=== PATIENT | male | born 1950 | race Caucasian/White ===

== ENCOUNTER 2020-01-08 12:40 | Outpatient (CLI) | payer MEDICARE, SELFPAY ==
[2020-01-08 13:45] LABS: Basophils Percent Auto 0.6 % (0.2-1.2); Eosinophils Absolute Auto 0.2 K/mm3 (0-0.3); Eosinophils Percent Auto 3.8 % (0-4.4); Hematocrit 44.3 % (42.0-52.0); Hemoglobin 14.8 g/dL (14.0-18.0); Immature Granulocyte Absolute 0.04 K/mm3 (0.00-0.031); Immature Granulocyte Percent A 0.6 % (0-0.5); Lymphocytes Absolute Auto 2.17 K/mm3 (0.9-3.2); Lymphocytes Percent Auto 34.4 % (18.3-44.2); Mean Corpuscular HGB Conc 33.4 g/dl (32-36); Mean Corpuscular Volume 89.9 fl (80-100); Mean Platelet Volume 10.6 fl (7.4-10.4); Monocytes Absolute Auto 0.6 K/mm3 (0.1-0.6); Monocytes Percent Auto 9.4 % (2.6-8.5); Neutrophils Absolute Auto 3.2 K/mm3 (1.3-6.7); Neutrophils Percent Auto 51.2 % (45.5-73.1); Platelet Count Result 151 k/mm3 (150-375); Red Blood Count 4.93 M/mm3 (4.6-6.20); Red Cell Distribution Width 13.2 % (11.5-14.5); White Blood Count 6.3 K/mm3 (4.5-10.0)
[2020-01-08 14:00] LABS: Alanine Aminotransferase 22 U/L (4-50); Alkaline Phosphatase 56 U/L (38-126); Aspartate Amino Transferase 31 U/L (17-59); Bilirubin,Total 0.5 mg/dL (0.2-1.3); Blood Urea Nitrogen 16 mg/dL (9-20); Calcium 9.5 mg/dL (8.4-10.2); Carbon Dioxide 26 mmol/L (22-30); Chloride 102 mmol/L (98-107); Estimated Glomerular Filt Rate > 60; Glucose 82 mg/dL (75-110); Potassium 4.5 mmol/L (3.4-5.0); Sodium 141 mmol/L (137-145)
[2020-01-08 14:30] LABS: Thyroid Stimulating Hormone 0.784 uIU/mL (0.465-4.680)
== END 2020-01-08 12:41 | disposition home or self-care (01) ==
PROVIDERS: PCP Family Medicine; Visit Provider Physician Assistant
DX: E03.9 Hypothyroidism, unspecified (principal); R42 Dizziness and giddiness
CPT/HCPCS: 36415; 80053; 84443; 85025

== ENCOUNTER → 2020-01-22 11:02 | Outpatient (REF) | payer MEDICARE, SELFPAY | LOC: ANHLAB 11:02 | PROVIDERS: PCP Family Medicine; Visit Provider Nurse Practitioner Family | DX: D49.2 Neoplasm of unspecified behavior of bone, soft tissue, and skin (principal) | CPT/HCPCS: 88305 ==

== ENCOUNTER 2020-01-28 13:51 | Emergency (ER) | payer MEDICARE, SELFPAY ==
--- NOTE | ~2020-01-28 | XR_ITS ---
EXAMINATION: XR ankle RT min 3V, XR foot RT min 3V EXAM DATE: 01/28/2020 14:32 INDICATION: Initial encounter following injury, with pain of the right foot, ankle. TECHNIQUE: Right foot dorsoplantar, lateral and oblique projections obtained and reviewed. Right ank le frontal, lateral and oblique projections obtained and reviewed. There is no prior study for fabien talavera. FINDINGS: Right metatarsal bones unremarkable. The right ankle mortise appears intact. There is a n avulsion fracture of the dorsal anterior aspect of the talus identified on the lateral projections, most likely an acute closed posttraumatic finding; check for point tenderness. No other suspicious f indings. IMPRESSION: Right talus anterior superior avulsion fracture, most likely acute. Clinical correlation . Reviewed, dictated and finalized at location B. IMPRESSION: Right talus anterior superior avulsion fracture, most likely acute . Clinical correlation.
[2020-01-28 14:03] VITALS: BP 140/109; PULSE 99; RESP 16; TEMP 36.1; O2SAT 98
--- NOTE | 2020-01-28 15:45 | ED.LOWEXIN ---
HPI - Extremity Injury (Lower) General Chief Complaint: Extremity Injury, Lower Stated Complaint: Right foot injury Time Seen by Provider: 01/28/20 13:58 Source: patient Mode of arrival: ambulatory Limitations: no limitations History of Present Illness HPI Narrative: Patient is a 69-year-old male who presents to emergency department for evaluation of right foot pain after miss stepping today and has since developed swelling and tenderness along the anterior lateral aspect of the right midfoot pain is worse with weightbearing and activity. Patient denies radicular symptoms or paresthesias and presents in no distress and has not taken anything for his symptoms Related Data Home Medications Medication Instructions Recorded Confirmed divalproex 250 mg tablet,extended 750 mg PO DAILY tablet 12/19/19 release 24 hr Allergies Allergy/AdvReac Type Severity Reaction Status Date / Time milk Allergy Unknown Dry Mouth Verified 01/28/20 14:07 Penicillins Allergy Unknown Unknown Verified 01/28/20 14:07 spinach Allergy Unknown Unknown Verified 01/28/20 14:07 Pork Allergy Unknown Stopped Uncoded 01/28/20 14:07 Breathing [place] Allergy Unknown Stopped Uncoded 01/28/20 14:07 Breathing Review of Systems Review of Systems: Narrative: CONSTITUTIONAL: Denies fever, chills, or sweats. SKIN: Positive for bruising and swelling MUSCULOSKELETAL: Denies back pain, joint pain, or myalgia. NEUROLOGIC: Denies numbness, or weakness. PMFSH Past Medical History Medical History CRUZITO (generalized anxiety disorder) Family History Family History (Updated 01/25/18 @ 21:44 by DOCTOR UNKNOWN) Sibling Family history of malignant neoplasm of stomach Father Family history of coronary artery disease Family history of cardiovascular disease Mother Family history of osteoporosis Family history of development disorder Social History Social History Smoking status: Never smoker Second hand tobacco smoke exposure: No Alcohol intake: never Substance use: never Substance use type: does not use Gender identity (if verbalized by the patient): Male Exam Narrative: Exam Narrative: GENERAL: Well-appearing, well-nourished, and in no acute distress. HEAD: Normocephalic, atraumatic. EYES: PERRLA and EOMI. ENT: Nares clear, no rhinorrhea or epistaxis. Mucous membranes moist. EXTREMITIES: Swelling and tenderness along the lateral midfoot SKIN: Warm, dry, no rash. NEURO: No focal deficits. Alert and oriented x3. Neurovascularly intact. Capillary refill less than 2 seconds PSYCH: Normal mood and affect. Course Course Emergency Course: Patient in the room aware of case findings treatment plan and diagnosis agreeing to follow-up as directed or to return if symptoms worsen or concerns Consultations Consultation #1: Patient to be placed in posterior splint and follow in clinic Date: 01/28/20 Vital Signs Vital signs: Vital Signs Temperature 97.0 F L 01/28/20 14:03 Pulse Rate 99 01/28/20 14:03 Respiratory Rate 16 01/28/20 14:03 Blood Pressure 140/109 H 01/28/20 14:03 Pulse Oximetry 98 01/28/20 14:03 Temperature 97.0 F L 01/28/20 14:03 Pulse Rate 99 01/28/20 14:03 Respiratory Rate 16 01/28/20 14:03 Blood Pressure 140/109 H 01/28/20 14:03 Pulse Oximetry 98 01/28/20 14:03 MDM - Extremity Injury (Lower) MDM Narrative Medical decision making narrative: Patients injury or pain is consistent with musculoskeletal etiology. No signs of neurological or vascular compromise on exam. Compartments and tisues are soft without signs of compartment syndrome. Pain is felt appropriate for further evaluation on an outpatient basis. Discharge Plan Discharge Clinical Impression: Ankle fracture, right Patient Disposition: Home, Self-Care Condition: Stable Instructions: Antibiotic Form, Ank
[2020-01-28 16:28] VITALS: BP 160/97; PULSE 81; RESP 15; O2SAT 95
== END 2020-01-28 16:30 | disposition home or self-care (01) ==
PROVIDERS: Emergency Provider Emergency Medicine; PCP Family Medicine
DX: S92.191A Other fracture of right talus, initial encounter for closed fracture (principal); F41.9 Anxiety disorder, unspecified; W18.40XA Slipping, tripping and stumbling without falling, unspecified, initial encounter
CPT/HCPCS: 29515; 73610; 73630; 99284

== ENCOUNTER → 2020-03-31 10:10 | Outpatient (REF) | payer MEDICARE, SELFPAY | LOC: ANHLAB 10:10 | PROVIDERS: PCP Family Medicine; Visit Provider Nurse Practitioner Family | DX: C44.41 Basal cell carcinoma of skin of scalp and neck (principal) | CPT/HCPCS: 88305; 88331 ==

== ENCOUNTER 2021-08-10 01:19 | Day surgery (SDC) | payer MEDICARE, SELFPAY ==
[2021-07-28 14:14] VITALS: BMI 26.4
--- NOTE | 2021-08-09 17:21 | PM.HPGS ---
History of Present Illness History of Present Illness Consent: Risks, benefits, and alternatives have been discussed and questions answered. Patient agrees to proceed with procedure. Chief complaint: hx of colon polyps Z86.010 Narrative: William Florez is a 71 year old male with history of colon polyps. He is here for colon cancer screening Review of Systems Review of Systems: All systems reviewed & are unremarkable except as noted in HPI and below PMFSH Past Medical History Medical History CRUZITO (generalized anxiety disorder) Stroke Surgical History Surgical History History of heart surgery History of hernia repair Family History Family History Sibling Family history of malignant neoplasm of stomach Father Family history of coronary artery disease Family history of cardiovascular disease Mother Family history of osteoporosis Family history of development disorder Social History Social History Smoking status: Never smoker Second hand tobacco smoke exposure: No Alcohol intake: never Substance use: never Substance use type: does not use Additional living arrangements comments: Gender identity (if verbalized by the patient): Male Sexual Orientation (if Verbalized by the Patient): Straight or Heterosexual Meds Home Medications and Allergies Home Medications Medication Instructions Recorded Confirmed Type aspirin 81 mg tablet,delayed 81 mg PO DAILY 02/03/20 08/10/21 History release omeprazole magnesium [Prilosec OTC] 40 mg PO DAILY 01/25/21 08/10/21 History levothyroxine 125 mcg tablet See Rx Instructions .ROUTE 03/18/21 08/10/21 Rx .COMPLEX #90 tablet buspirone 5 mg tablet 5 mg PO BID #60 tablet 07/01/21 08/10/21 Rx simvastatin 40 mg tablet See Rx Instructions .ROUTE 07/26/21 08/10/21 Rx .COMPLEX #90 tablet divalproex [Depakote ER] See Rx Instructions .ROUTE .COMPLEX 07/28/21 08/10/21 History sertraline 50 mg tablet See Rx Instructions .ROUTE 08/05/21 08/10/21 Rx .COMPLEX #90 tablet Allergies Allergy/AdvReac Type Severity Reaction Status Date / Time milk Allergy Unknown Dry Mouth Verified 08/10/21 06:48 Penicillins Allergy Unknown Unknown Verified 08/10/21 06:48 spinach Allergy Unknown Unknown Verified 08/10/21 06:48 Pork Allergy Unknown Anaphylaxis Uncoded 08/10/21 06:48 [place] Allergy Unknown Anaphylaxis Uncoded 08/10/21 06:48 Exam Const: General: alert Orientation/consciousness: patient oriented x3 Resp: Auscultation: clear to auscultation bilaterally Cardio: Rhythm: regular rhythm GI: GI Palp: Yes Soft to palpation and No Tenderness to palpation present (GI) Neuro: General: patient oriented x3 Assessment and Plan Assessment and plan (1) Colon cancer screening: Code(s): Z12.11 - Encounter for screening for malignant neoplasm of colon Status: Acute Assessment and Plan: Colonoscopy with possible biopsy or polypectomy or cautery or injection of substances.
[2021-08-10 06:50] VITALS: BP 144/99; PULSE 79; RESP 18; TEMP 36.3; O2SAT 100
[2021-08-10] MEDS: LACTATED RINGERS 1,000 ML 150 ML IV CONT (06:55)
--- NOTE | 2021-08-10 06:55 | WPDANESEPPF ---
Anes - Initial Pre Proc Eval Procedure: Operation Date: 08/10/21 08:00 Proposed Procedures p Screening Colonoscopy - Darío Lomeli MD Date/Time: 08/10/21 06:55 Surgeon: Darío Lomeil MD Pre Op Diagnosis: hx of colon polyps Z86.010 Patient Data Age: 71 Gender: M Height: 1.73 m Weight: 80.3 kg Last Vital Signs Temp 36.3 C L 08/10/21 06:50 Pulse 79 08/10/21 06:50 Resp 18 08/10/21 06:50 BP 144/99 H 08/10/21 06:50 Pulse Ox 100 08/10/21 06:50 Allergies Allergy/AdvReac Type Severity Reaction Status Date / Time milk Allergy Unknown Dry Mouth Verified 08/10/21 06:48 Penicillins Allergy Unknown Unknown Verified 08/10/21 06:48 spinach Allergy Unknown Unknown Verified 08/10/21 06:48 Pork Allergy Unknown Anaphylaxis Uncoded 08/10/21 06:48 [place] Allergy Unknown Anaphylaxis Uncoded 08/10/21 06:48 Home Medications Medication Instructions Recorded Confirmed Type aspirin 81 mg tablet,delayed 81 mg PO DAILY 02/03/20 08/10/21 History release omeprazole magnesium [Prilosec OTC] 40 mg PO DAILY 01/25/21 08/10/21 History levothyroxine 125 mcg tablet See Rx Instructions .ROUTE 03/18/21 08/10/21 Rx .COMPLEX #90 tablet buspirone 5 mg tablet 5 mg PO BID #60 tablet 07/01/21 08/10/21 Rx simvastatin 40 mg tablet See Rx Instructions .ROUTE 07/26/21 08/10/21 Rx .COMPLEX #90 tablet divalproex [Depakote ER] See Rx Instructions .ROUTE .COMPLEX 07/28/21 08/10/21 History sertraline 50 mg tablet See Rx Instructions .ROUTE 08/05/21 08/10/21 Rx .COMPLEX #90 tablet Patient hx anesthesia problems: none Family hx anesthesia problems: none PMFSH Past Medical History Medical History CRUZITO (generalized anxiety disorder) Stroke Surgical History Surgical History History of heart surgery History of hernia repair Family History Family History Sibling Family history of malignant neoplasm of stomach Father Family history of coronary artery disease Family history of cardiovascular disease Mother Family history of osteoporosis Family history of development disorder Social History Social History Smoking status: Never smoker Second hand tobacco smoke exposure: No Alcohol intake: never Substance use: never Substance use type: does not use Additional living arrangements comments: Gender identity (if verbalized by the patient): Male Sexual Orientation (if Verbalized by the Patient): Straight or Heterosexual Anes - Eval Final PreProcedure Day of Procedure 08/10/21 06:55 Patient weight: normal Heart: regular rate and rhythm Lungs: clear to auscultation and normal air movement Airway: Mallampati scale class II Neurological: alert and oriented Last oral intake: >/= 8 hours ASA classification: III Emergent: no Anesthetic plan: proceed Anesthesia type and monitoring: general GIVS Informed Consent: The patient's anesthetic plan and its attendant risks and benefits were discussed with the patient/family/POA. Questions were solicited and answers provided to the satisfaction of the patient/family/POA.
--- NOTE | 2021-08-10 07:21 | PM.HPGS ---
History of Present Illness History of Present Illness Consent: Risks, benefits, and alternatives have been discussed and questions answered. Patient agrees to proceed with procedure. Chief complaint: hx of colon polyps Z86.010 Narrative: William Florez is a 71 year old male here for colon cancer screening. He has had polyps removed about 4 years ago Review of Systems Review of Systems: All systems reviewed & are unremarkable except as noted in HPI and below PMFSH Past Medical History Medical History CRUZITO (generalized anxiety disorder) Stroke Surgical History Surgical History History of heart surgery History of hernia repair Family History Family History Sibling Family history of malignant neoplasm of stomach Father Family history of coronary artery disease Family history of cardiovascular disease Mother Family history of osteoporosis Family history of development disorder Social History Social History Smoking status: Never smoker Second hand tobacco smoke exposure: No Alcohol intake: never Substance use: never Substance use type: does not use Additional living arrangements comments: Gender identity (if verbalized by the patient): Male Sexual Orientation (if Verbalized by the Patient): Straight or Heterosexual Meds Home Medications and Allergies Home Medications Medication Instructions Recorded Confirmed Type aspirin 81 mg tablet,delayed 81 mg PO DAILY 02/03/20 08/10/21 History release omeprazole magnesium [Prilosec OTC] 40 mg PO DAILY 01/25/21 08/10/21 History levothyroxine 125 mcg tablet See Rx Instructions .ROUTE 03/18/21 08/10/21 Rx .COMPLEX #90 tablet buspirone 5 mg tablet 5 mg PO BID #60 tablet 07/01/21 08/10/21 Rx simvastatin 40 mg tablet See Rx Instructions .ROUTE 07/26/21 08/10/21 Rx .COMPLEX #90 tablet divalproex [Depakote ER] See Rx Instructions .ROUTE .COMPLEX 07/28/21 08/10/21 History sertraline 50 mg tablet See Rx Instructions .ROUTE 08/05/21 08/10/21 Rx .COMPLEX #90 tablet Allergies Allergy/AdvReac Type Severity Reaction Status Date / Time milk Allergy Unknown Dry Mouth Verified 08/10/21 06:48 Penicillins Allergy Unknown Unknown Verified 08/10/21 06:48 spinach Allergy Unknown Unknown Verified 08/10/21 06:48 Pork Allergy Unknown Anaphylaxis Uncoded 08/10/21 06:48 [place] Allergy Unknown Anaphylaxis Uncoded 08/10/21 06:48 Vital Signs Vital Signs - 24 hr 08/10/21 06:50 Temperature 36.3 C L Pulse Rate 79 Respiratory Rate 18 Blood Pressure 144/99 H Pulse Oximetry 100 Exam Resp: Auscultation: clear to auscultation bilaterally Cardio: Rate: regular rate Rhythm: regular rhythm GI: GI Palp: Yes Soft to palpation and No Tenderness to palpation present (GI) Assessment and Plan Assessment and plan (1) Colon cancer screening: Code(s): Z12.11 - Encounter for screening for malignant neoplasm of colon Status: Acute Assessment and Plan: Colonoscopy with possible biopsy or polypectomy or cautery or injection of substances.
[2021-08-10 08:12] VITALS: BP 105/57; PULSE 60; RESP 16; O2SAT 97
[2021-08-10 08:22] VITALS: BP 104/61; PULSE 52; RESP 16; O2SAT 97
[2021-08-10 08:32] VITALS: BP 123/75; PULSE 56; RESP 18; O2SAT 97
== END 2021-08-10 08:43 | disposition home or self-care (01) ==
PROVIDERS: PCP Family Medicine; Visit Provider Internal Medicine Gastroenterology
PROC: 0DJD8ZZ Inspection of Lower Intestinal Tract, Via Natural or Artificial Opening Endoscopic (ICD-10-PCS; CPT 45378; principal; 2021-08-10 08:00)
DX: Z12.11 Encounter for screening for malignant neoplasm of colon (principal); K57.30 Diverticulosis of large intestine without perforation or abscess without bleeding; Z86.010 Personal history of colon polyps; F41.1 Generalized anxiety disorder; Z86.73 Personal history of transient ischemic attack (TIA), and cerebral infarction without residual deficits; Z79.82 Long term (current) use of aspirin
CPT/HCPCS: G0105; J2704; J7120

== ENCOUNTER 2022-08-21 14:27 | Outpatient (CLI) | payer MEDICARE, SELFPAY ==
[2022-08-21 15:15] LABS: Valproic Acid 50.4 ug/mL (50-120)
== END 2022-08-21 14:28 | disposition home or self-care (01) ==
PROVIDERS: Anesthesiology; PCP Family Medicine; Visit Provider Surgery
DX: G40.909 Epilepsy, unspecified, not intractable, without status epilepticus (principal); Z01.818 Encounter for other preprocedural examination
CPT/HCPCS: 36415; 80164

== ENCOUNTER 2022-08-28 02:03 | Day surgery (SDC) | payer MEDICARE, SELFPAY ==
[2022-08-18 13:31] VITALS: BMI 28.8
--- NOTE | 2022-08-18 13:59 | PC.NURSE ---
Report to the Outpatient Waiting Room, entrance under the green pavilion located off [facility], at time ___11:00AM____ on date _08/28/22 . OR Time: __1:00PM . Time changes happen often and if your time is changed the preop area will call you the afternoon before. - You and your visitor will be asked to self-screen and do not enter if you have any COVID symptoms. - Only one visitor and NO children visitors are allowed at this time. - The patient visitor is requested to leave or wait in car when not with patient due to restrictions. - A mask is required within the hospital. Patients may have clear liquids (water, carbonated beverages, clear teas, apple juice) until 3 hours prior to surgery with a maximum of 20 ounces. - No food from midnight until time of surgery Take the following medications with a SIP of water the morning of surgery: ___BUSPIRONE, DIVALPROEX, LEVOTHYROXINE, SERTRALINE Medications to discontinue per physician ____HOLD ALL VITAMINS/SUPPLEMENTS 3 DAYS PRE-OP Date to take last dose____08/25/22 Please no make-up, nail al[place]ian, hairspray, perfume, deodorant, or body powder the day of surgery. No jewelry (including any body piercings) or valuables the day of surgery, leave them at home. Please take a shower or bath the night before, or the morning of, surgery with an antibacterial soap. Wear comfortable, loose fitting clothing. Children are encouraged to wear pajamas. - Jewelry must be removed prior to entering the operating room. Rings and piercings that are not removed may be cut off. - The hospital will not accept responsibility for valuables. - Please leave all valuables, including medications, at home the day of surgery. If you are going home after surgery, a licensed rolloff truck driver must drive you home. - NO public transportation without another adult. - We recommend that an adult stay with you for 24 hours following discharge. - We also recommend that you do not drive, make important decision, drink alcoholic beverages, or take any drugs that were not prescribed by your health care provider for at least 24 hours after your discharge time. Follow any additional instructions given to you from your surgeon. If you or anyone in your household have experienced Covid symptoms in the past week, please notify your surgeon or the nurse liaison at the phone number below for possible testing. Telephone instructions given to __PATIENT and asked if any additional questions and then verbalized understanding. Patient advised to call surgeon office or pre surgery nurse liaison [phone] if any additional questions.
[2022-08-28 11:11] VITALS: BP 146/87; PULSE 72; RESP 20; TEMP 36.8; O2SAT 99
[2022-08-28] MEDS: ACETAMINOPHEN 500 MG TABLET 1000 MG PO (11:22)
--- NOTE | 2022-08-28 12:15 | WPDANESEPPF ---
Anes - Initial Pre Proc Eval Procedure: Operation Date: 08/28/22 13:00 Proposed Procedures p Rectal Examination under Anesthesia, Excision External Hemorrhoid - Rad Cruz DO Date/Time: 08/28/22 12:15 Surgeon: Rad Cruz DO Pre Op Diagnosis: Bleeding External Hemorrhoids Patient Data Age: 72 Gender: M Height: 1.73 m Weight: 86 kg Allergies Allergy/AdvReac Type Severity Reaction Status Date / Time milk Allergy Severe BREATHING Verified 08/28/22 11:13 DIFFICULTY/POSITIVE ON ALLERGY TESTING Penicillins Allergy Unknown Unknown Verified 08/28/22 11:13 spinach AdvReac Unknown AVOIDS R/T Verified 08/28/22 11:13 KIDNEY STONES [place] AdvReac Unknown PER Uncoded 08/28/22 11:13 ALLERGY SKIN TESTING [place] AdvReac Unknown PER Uncoded 08/28/22 11:13 ALLERGY SKIN TESTING Home Medications Medication Instructions Recorded Confirmed Type aspirin 81 mg tablet,delayed 81 mg PO DAILY 02/03/20 08/28/22 History release (Adult Aspirin Regimen) buspirone 5 mg tablet 5 mg PO BID #180 tabs 05/19/22 08/28/22 Rx divalproex 250 mg tablet,extended See Rx Instructions .Route 06/02/22 08/28/22 Rx release 24 hr (Depakote ER) .COMPLEX #270 tabs hydrocortisone 2.5 % topical cream 1 applic RECTAL DAILY PRN Pain 08/08/22 08/28/22 History with perineal applicator glucosamine sulf dipot 1 cap PO DAILY 08/18/22 08/28/22 History chlr,msm,chond 550 mg-C 30 mg-mateus 1 mg capsule (Glucosamine Chondroitin) multivitamin 1 tablet PO DAILY 08/18/22 08/28/22 History omega 6-yrq-cfz-fish oil 1,000 mg 1 cap PO DAILY 08/18/22 08/28/22 History (120 mg-180 mg) capsule (Fish Oil) omeprazole 20 mg tablet,delayed 20 mg PO DAILY 08/18/22 08/28/22 History release sertraline 50 mg tablet (Zoloft) 50 mg PO QAM 08/18/22 08/28/22 History simvastatin 40 mg tablet 40 mg PO DAILY 08/18/22 08/28/22 History levothyroxine 125 mcg tablet 125 mcg PO QAM #90 tabs 08/21/22 08/28/22 Rx Patient hx anesthesia problems: none Family hx anesthesia problems: none Results Review: All pre-operative results and documents have been reviewed as part of the pre-operative evaluation. [facility] Past Medical History Medical History Epilepsy, unspecified, not intractable, without status epilepticus CRUZITO (generalized anxiety disorder) Gastro-esophageal reflux disease without esophagitis Hemorrhoids Hypothyroidism Mixed hyperlipidemia Stroke Surgical History Surgical History History of heart surgery History of hernia repair right inguinal hernia repair Family History Family History Sibling , in his early 50's Family history of malignant neoplasm of stomach Father , in his early 50's Family history of coronary artery disease Family history of cardiovascular disease Mother Family history of osteoporosis Family history of development disorder Social History Social History Social History: Smoking status: Never smoker Second hand tobacco smoke exposure: No Alcohol intake: never Substance use: never Substance use type: does not use Living arrangements: with family Additional living arrangements comments: Gender identity (if verbalized by the patient): Male Sexual Orientation (if Verbalized by the Patient): Straight or Heterosexual Spiritual care concerns: No Anes - Eval Final PreProcedure Day of Procedure 08/28/22 12:15 Patient weight: overweight Heart: regular rate and rhythm Lungs: clear to auscultation Airway: Mallampati scale class III Neurological: alert and oriented Last oral intake: >/= 8 hours ASA classification: III Emergent: no Anesthetic plan: proceed Anesthesia type an
--- NOTE | 2022-08-28 12:51 | WPDHPUPDATE1 ---
History and Physical Update Update Date/Time: 08/28/22 12:51 History and Physical has been reviewed, including an updated exam of the patient. There are NO changes in the patient's condition. Risks, benefits, and alternatives have been discussed and questions answered. Patient agrees to proceed with procedure.
[2022-08-28] MEDS: LACTATED RINGERS 1,000 ML 30 ML IV CONT (12:57)
[2022-08-28] MEDS: KETOROLAC 15 MG/ML VIAL (*BKC) IV PUSH (12:58)
[2022-08-28] MEDS: ceFAZolin 2 GM/D5W 50 ML 2 GM/50 ML BAG IVPB (13:02)
[2022-08-28 13:47] VITALS: BP 128/70; PULSE 71; RESP 19; O2SAT 98
--- NOTE | 2022-08-28 13:51 | W.PM.PROC2 ---
Procedure Note - Detailed Date of Procedure 08/28/22 Pre-op Diagnosis Bleeding External Hemorrhoids Post-op Diagnosis Other (Internal and external hemorrhoid, anal skin tag) Procedure Performed Rectal exam under anesthesia with internal and external hemorrhoidectomy x1 column, excision of anal skin tag Surgeon Rad Cruz, DO Anesthesia MAC and Local (2% lidocaine with epinephrine) Indications This is a 72-year-old man who presents with bright red blood per rectum for the past several months. He states that he has not typically noticed any blood dripping into the toilet, but does notice blood when wiping and has some discomfort and irritation. He also has to wear a pad due to some bleeding that he will noticed throughout the day. On exam he was found to have a friable inflamed external hemorrhoid but there did not appear to be any evidence of thrombosis. Discussions were made with the patient about treatment options and decision was made to proceed with rectal exam under anesthesia with excision of external hemorrhoid. Findings Rectal exam under anesthesia was performed. Upon inspecting the anal rectal canal carefully with an anoscope, the area of concern in the anterior midline appeared to be a prolapsing internal hemorrhoid that was friable and inflamed. This was associated with an external hemorrhoid as well. In internal and external hemorrhoidectomy was performed in the anterior midline region. The patient was also noted to have a right posterior anal skin tag. This was also excised and sent to the lab for pathology. Description of Procedure Procedure as well as risks, benefits, and alternatives were discussed with the patient. Written consent was obtained and placed in chart prior to procedure. Patient was brought back to surgical suite. He was placed supine on operating table. Time-out was done to confirm patient and procedure. IV sedation was then administered by the anesthesia department. He was then placed in dorsal lithotomy position and his perirectal region was prepped and draped in sterile fashion using Betadine prep. Digital rectal exam was initially performed. A Ike-Allred anoscope was then inserted. The anal rectal canal was carefully inspected and visualized. 2% lidocaine with epinephrine was then infiltrated locally around the internal external hemorrhoid in the anterior midline and also in the region of the right posterior skin tag. A [id number] suture was placed at the apex of the hemorrhoid bundle in the anterior midline using 2-0 chromic suture. An elliptical incision was then made around the external hemorrhoid tissue and this was then extended onto rectal mucosa of the hemorrhoid bundle. A curved clamp was then placed across the hemorrhoid bundle then it was excised with scissors. The 2-0 chromic suture was then run across the hemorrhoid bundle and the clamp was then removed and the suture was pulled taut. Running locking sutures were then placed back to the apex of the hemorrhoid bundle and it was then tied in place. The anoderm was then reapproximated using 3-0 chromic simple interrupted sutures. The area was then irrigated and inspected and hemostasis appeared adequate. Then repositioned the anoscope to visualize the right posterior anal skin tag. The anal skin tag was excised using a 15 blade scalpel in an elliptical fashion. Electrocautery was then used for hemostasis. The anoderm was then reapproximated using 3-0 chromic simple interrupted sutures. The area was irrigated 1 final inspection was made around the area. Hemostasis appeared adequate no other abnormalities were noted. Xeroform gauze was then applied at the anal opening followed by fluffed 4 x 4 gauze and mesh underwear. Patient was then awakened from anesthesia and transferred to recovery. Estimated Blood Loss 10 Pathology Yes (Internal and external hemorrhoid, anal skin tag) Complications No immediate complications Condition Sta
[2022-08-28 14:15] VITALS: BP 114/69; PULSE 65; RESP 16; O2SAT 96
[2022-08-28 14:45] VITALS: BP 134/74; PULSE 62; RESP 16
[2022-08-28 15:15] VITALS: BP 125/69; PULSE 58; RESP 16
== END 2022-08-28 15:18 | disposition home or self-care (01) ==
PROVIDERS: PCP Family Medicine; Visit Provider Surgery
PROC: (CPT 46255; principal; 2022-08-28 13:00)
DX: K64.4 Residual hemorrhoidal skin tags (principal); G40.909 Epilepsy, unspecified, not intractable, without status epilepticus; E78.2 Mixed hyperlipidemia; E03.9 Hypothyroidism, unspecified; K21.9 Gastro-esophageal reflux disease without esophagitis; F41.1 Generalized anxiety disorder; Z86.73 Personal history of transient ischemic attack (TIA), and cerebral infarction without residual deficits; Z79.82 Long term (current) use of aspirin
CPT/HCPCS: 46255; 88304; A9270; J0690; J1885; J2704; J3010; J7120

== ENCOUNTER 2025-10-09 22:50 | Observation (INO) | payer MEDICARE, SELFPAY ==
--- NOTE | ~2025-10-09 | CT_ITS ---
EXAMINATION: CT abdomen pelvis w con DATE: 10/10/2025 00:44 INDICATION: Right lower quadrant abdominal pain. TECHNIQUE: Computed tomography (CT) of the abdomen and pelvis was performed with 100 mL Omnipaque 350 intravenous contrast. Automated exposure control and iterative reconstruction technique were employed. The dose-length product was 467.93 mGy-cm. COMPARISON: CT abdomen and pelvis 01/22/18 FINDINGS: The visualized portions of lung bases demonstrate mild atelectasis. No pleural effusion. The heart size is normal. There is a closure device of the interatrial septum. There are coronary artery calcifications. No pericardial effusion. There are cysts in the liver measuring up to 8 mm. Calcifications in the spleen are consistent with old granulomatous disease. The gallbladder, pancreas, and adrenal glands are normal. There are cysts in the kidneys measuring up to 12 mm on the right. The prostate is moderately enlarged. There is diverticulosis of the colon without evidence of diverticulitis. The appendix measures 12 mm in diameter. There is fat stranding adjacent to the appendix and wall thickening of base of the cecum, consistent with appendicitis. There are no pathologically enlarged lymph nodes. There is no free intraperitoneal fluid. There is severe lower lumbar spondylosis and moderate thoracic spondylosis IMPRESSION: 1. Acute appendicitis. Reviewed, dictated and finalized at location E. PURIFIER IMPRESSION: 1. Acute appendicitis.
[2025-10-09 22:52] VITALS: BP 149/86; PULSE 86; RESP 16; TEMP 36.6; O2SAT 100
[2025-10-09 23:05] VITALS: O2SAT 100
[2025-10-09 23:06] VITALS: BP 136/96; PULSE 79; RESP 19; O2SAT 99
--- NOTE | 2025-10-09 23:38 | ED.ABDPAIN ---
HPI - Abdominal Pain General Chief Complaint: Abdominal Pain Stated Complaint: RLQ abd pain Time Seen by Provider: 10/09/25 23:06 History of Present Illness HPI narrative: 75-year-old male with a past medical history including prior CVA, hyperlipidemia. Patient presents to the emergency department today with right lower quadrant pain. Pain was present when he woke up from sleep in the middle of the night. It was localized to the periumbilical region and then migrated towards his right lower quadrant. Feels like it is deep pain towards his pelvis but not going into his groin. No urinary complaints nausea or vomiting. Endorse subjective fever or chills at home. Denies any shortness of breath or chest discomfort. No traumatic injuries. Does have a history of an inguinal hernia repair he states was on the left side. No masses are palpable defect he notices. No history of any abdominal surgeries otherwise and still has his appendix and gallbladder. Related Data Home Medications ?Medication ?Instructions ?Recorded ?Confirmed ?Last Taken ?Type aspirin 81 mg tablet,delayed 81 mg PO DAILY 02/03/20 07/15/25 08/25/22 History release (Adult Aspirin Regimen) glucosamine sulf dipot 1 cap PO DAILY 08/18/22 07/15/25 08/25/22 History chlr,msm,chond 550 mg-C 30 mg-mateus 1 mg capsule (Glucosamine Chondroitin) multivitamin 1 tablet PO DAILY 08/18/22 07/15/25 08/25/22 History omega 2-lkf-xzm-fish oil 1,000 mg 1 cap PO DAILY 08/18/22 07/15/25 08/25/22 History (120 mg-180 mg) capsule (Fish Oil) omeprazole 20 mg tablet,delayed 20 mg PO DAILY 08/18/22 07/15/25 08/25/22 History release Allergies Allergy/AdvReac Type Severity Reaction Status Date / Time milk Allergy Severe BREATHING Verified 07/15/25 09:45 DIFFICULTY/POSITIVE ON ALLERGY TESTING Penicillins Allergy Unknown Unknown Verified 07/15/25 09:45 spinach AdvReac Unknown AVOIDS R/T Verified 07/15/25 09:45 KIDNEY STONES Pork AdvReac Unknown PER Uncoded 07/15/25 09:45 ALLERGY SKIN TESTING [place] AdvReac Unknown PER Uncoded 07/15/25 09:45 ALLERGY SKIN TESTING Review of Systems Review of Systems: As reviewed [facility] Past Medical History Medical History Hemorrhoids Stroke CRUZITO (generalized anxiety disorder) Gastro-esophageal reflux disease without esophagitis Epilepsy, unspecified, not intractable, without status epilepticus Hypothyroidism Mixed hyperlipidemia Surgical History Surgical History Hx of hemorrhoidectomy REUA, excision of external hemorrhoids performed on 08/28/22 History of heart surgery History of hernia repair right inguinal hernia repair Family History Family History Sibling , in his early 50's Family history of malignant neoplasm of stomach Father , in his early 50's Family history of coronary artery disease Family history of cardiovascular disease Mother Family history of osteoporosis Family history of development disorder Social History Social History Social History: Smoking status: Never smoker Second hand tobacco smoke exposure: No Alcohol intake: never Substance use: never Substance use type: does not use Lack of Transportation: No Lack of Food: Never True Current Housing: I Have Housing Concerned About Future Housing: No Difficulty Paying Gas/Electric Bills: No Difficulty Paying for Meds: No Currently Unemployed: YES Education: Decline to Answer Difficulty w/ Childcare or Family Care: No Living arrangements: with family Occupation/Education: retired Gender identity (if verbalized by the patient): Male Sexual Orientation (if Verbalized by the Patient): Straight or Heterosexual Spiritual care concerns: No Exam Narrative: GENERAL: [Well-appearing, well-nourished, and in no acute distress.] HEAD: [Normocephalic, atraumatic.] EYES: [PERRLA and EOMI.] ENT: Nares clear, no rhinorrhea or epistaxis. Mucous membranes moist. NECK: Supple. CHEST: [Clear to auscultation. No respiratory distress.] HEART: [Regular rate and rhythm]. No murmur heard. [Normal peripheral pulses.] ABDOMEN: Tender to palpation the right lower quadrant focally. No rebound guarding. No rigidity or peritonitis. Negative Rovsing and psoas sign. EXTREMITIES: Normal range of motion. [No edema.] SKIN: Warm, dry, no rash. NEURO: [No focal deficits]. Alert and oriented [x3.] PSYCH: [Normal mood and affect.] Course Vital Signs Vital signs: Vital Signs Temperature 36.6 C 10/09/25 22:52 Pulse Rate 86 10/09/25 22:52 Respiratory Rate 16 10/09/25 22:52 Blood Pressure 149/86 H 10/09/25 22:52 Pulse Oximetry 100 10/09/25 22:52 Oxygen Delivery Room Air 10/09/25 22:52 Temperature 36.6 C 10/09/25 22:52 Pulse Rate 79 10/09/25 23:06 Respiratory Rate 19 10/09/25 23:06 Blood Pressure 136/96 H 10/09/25 23:06 Pulse Oximetry 99 10/09/25 23:06 Oxygen Delivery Room Air 10/09/25 22:52 MDM - Abdominal Pain MDM Narrative Medical decision making narrative: 75-year-old male with a past medical history including prior CVA, hyperlipidemia. Patient presents to the emergency department today with right lower quadrant pain. Pain was present when he woke up from sleep in the middle of the night. It was localized to the periumbilical region and then migrated towards his right lower quadrant. Feels like it is deep pain towards his pelvis but not going into his groin. No urinary complaints nausea or vomiting. Endorse subjective fever or chills at home. Denies any shortness of breath or chest discomfort. No traumatic injuries. Does have a history of an inguinal hernia repair he states was on the left side. No masses are palpable defect he notices. No history of any abdominal surgeries otherwise and still has his appendix and gallbladder. Tender to palpation the right lower quadrant focally. No rebound guarding. No rigidity or peritonitis. Negative Rovsing and psoas sign. Patient is hemodynamically stable without any tachycardia, fever or hypoxemia. Normal blood pressure. Given location of pain and quality of his symptoms sounds like it could be intra-abdominal process such as colitis, gastroenteritis, appendicitis. Possibility of a hernia less likely without any masses palpable on examination. Low suspicion volvulus. Having normal bowel movements and no nausea vomiting. Was given Dilaudid and fluids and CT scan with contrast obtained wall workup with labs and urinalysis ordered. CT scan reviewed and also interpreted by Radiology showing appendicitis. No bowel obstruction. Laboratory studies are unremarkable. He is hemodynamically stable. Placed and started on Rocephin and Flagyl and I discussed the case with Dr. Pan who will be on consult. Patient's last dose of aspirin was yesterday morning. Denies being on any other anticoagulants at this time. Patient made NPO. Patient will be admitted. Spoke to the hospitalist team who accepted him to a med surge floor at this time. Pain meds PRN and NPO now. Medical Records Attestation: I reviewed the patient's medical records. Lab Data Attestation: I reviewed the patient's lab results. 10/09/25 23:31 10/09/25 23:31 Labs: Lab Results 10/09/25 Range/Units 23:31 WBC 9.0 (4.5-10.0) K/mm3 RBC 4.72 (4.6-6.20) M/mm3 Hgb 14.1 (14.0-18.0) g/dL Hct 42.2 (42.0-52.0) % MCV 89.4 (80-100) fl MCH 29.9 (26-34) pg MCHC 33.4 (32-36) g/dl RDW 13.6 (11.5-14.5) % Plt Count 136 L (150-375) k/mm3 MPV 9.8 (7.4-10.4) fl Immature Gran % (Auto) 0.3 (0-0.5) % Neut % (Auto) 69.0 (45.5-73.1) % Lymph % (Auto) 17.1 L (18.3-44.2) % [place] % (Auto) 9.9 H (2.6-8.5) % Eos % (Auto) 3.3 (0-4.4) % Baso % (Auto) 0.4 (0.2-1.2) % Lymph # (Auto) 1.54 (0.9-3.2) K/mm3 [place] # (Auto) 0.9 H (0.1-0.6) K/mm3 Eos # (Auto) 0.3 (0-0.3) K/mm3 Baso # (Auto) 0.0 (0.0-0.1) K/mm3 Abs Immat Gran (auto) 0.03 (0.00-0.031) K/mm3 Absolute Neuts (auto) 6.2 (1.3-6.7) K/mm3 Absolute Nucleated RBC 0.000 (0.0-0.012) K/mm3 Nucleated RBC % 0.0 (0.0-0.2) % Sodium 137 (137-145) mmol/L Potassium 4.0 (3.4-5.0) mmol/L Chloride 104 (98-107) mmol/L Carbon Dioxide 27 (22-30) mmol/L Anion Gap 6 (4-12) mmol/L BUN 28 H D (9-20) mg/dL Creatinine 0.89 (0.7-1.3) mg/dL Estim Creat Clear Calc 60 ml/min Estimated GFR > 60 (59 - ) Glucose 142 H (65-110) mg/dL Calcium 9.1 (8.4-10.2) mg/dL Total Bilirubin 0.5 (0.2-1.3) mg/dL AST 29 (17-59) U/L ALT 20 (6-50) U/L Alkaline Phosphatase 68 (38-126) U/L Total Protein 7.0 (6.3-8.2) g/dL Albumin 4.0 (3.5-5.1) g/dL Lipase 93 (23-300) U/L Urine Color Yellow (Yellow) Urine Appearance Clear (Clear) Urine pH 6.0 (5.0-9.0) Ur Specific Colon 1.044 H (1.001-1.035) Urine Protein Negative (Negative) mg/dL Urine Glucose (UA) Negative (Negative) mg/dL Urine Ketones Negative (Negative) mg/dL Ur Blood (Man) Negative (Negative) Urine Nitrate Negative (Negative) Urine Bilirubin Negative (Negative) Urine Urobilinogen 0.2 (<2.0) mg/dL Leukocyte Esterase Rfl Negative (Negative) GIANCARLO/UL Imaging Data Attestation: I personally reviewed and interpreted this imaging study as follows: My impression: Acute appendicitis Discharge Plan Discharge Clinical Impression: Acute appendicitis Patient Disposition: Still a Patient Condition: Stable Time of Disposition: 02:00
[2025-10-09 23:39] LABS: Hematocrit 42.2 % (42.0-52.0); Hemoglobin 14.1 g/dL (14.0-18.0); Immature Granulocyte Percent A 0.3 % (0-0.5); Lymphocytes Absolute Auto 1.54 K/mm3 (0.9-3.2); Mean Corpuscular HGB Conc 33.4 g/dl (32-36); Mean Corpuscular Hemoglobin 29.9 pg (26-34); Mean Corpuscular Volume 89.4 fl (80-100); Nucleated Red Blood Cells Absolute Auto 0.000 K/mm3 (0.0-0.012); Nucleated Red Blood Cells Perc 0.0 % (0.0-0.2); Platelet Count Result 136 k/mm3 (150-375); Red Blood Count 4.72 M/mm3 (4.6-6.20); White Blood Count 9.0 K/mm3 (4.5-10.0)
[2025-10-09] MEDS: LACTATED RINGERS 1,000 ML 999 ML IV CONT (23:44)
[2025-10-09] MEDS: ONDANSETRON INJ 4 MG/2 ML VIAL IV PUSH (23:45)
[2025-10-09] MEDS: HYDROmorphone HCL INJ (*CRX) 1 MG/ML SYR 0.5 MG IV PUSH (23:45)
[2025-10-10] LABS: Alanine Aminotransferase 20 U/L (6-50); Albumin Level 4.0 g/dL (3.5-5.1); Alkaline Phosphatase 68 U/L (38-126); Anion Gap 6 mmol/L (4-12); Aspartate Amino Transferase 29 U/L (17-59); Bilirubin,Total 0.5 mg/dL (0.2-1.3); Blood Urea Nitrogen 28 mg/dL (9-20); Calcium 9.1 mg/dL (8.4-10.2); Carbon Dioxide 27 mmol/L (22-30); Chloride 104 mmol/L (98-107); Estimated CRCL calculation 60 ml/min; Estimated Glomerular Filt Rate > 60; Glucose 142 mg/dL (65-110); Lipase 93 U/L (23-300); Potassium 4.0 mmol/L (3.4-5.0); Sodium 137 mmol/L (137-145); Total Protein 7.0 g/dL (6.3-8.2)
[2025-10-10 01:05] LABS: Add Urine Microscopic? NO; Appearance Urine Clear (Clear); Glucose Urine UA Negative (Negative); Leukocyte Esterase Ur Negative LEU/UL (Negative); Nitrate Urine Negative (Negative); Specific Grav Ur 1.044 (1.001-1.035)
[2025-10-10] MEDS: metroNIDAZOLE 500 MG/ISO 100ML 500 MG/100 ML BAG 100 MG IVPB (02:03)
--- NOTE | 2025-10-10 03:08 | WPCEDHO ---
ED Hand Off Checklist All vitals saved:Y IV Site documented:Y All med administrations documented:Y Triage Note Triage Note Pt presents to ED c/o 06/28 RLQ 10/09/25 22:52 pain radiating to back, worsening with movement started yesterday around 3am. Pt denies n/v, no rebound tenderness, denies fever. Allergies milk Allergy (Severe, Verified 07/15/25 09:45) BREATHING DIFFICULTY/POSITIVE ON ALLERGY TESTING Penicillins Allergy (Unknown, Verified 07/15/25 09:45) Unknown spinach Adverse Reaction (Unknown, Verified 07/15/25 09:45) AVOIDS R/T KIDNEY STONES Pork Adverse Reaction (Unknown, Uncoded 07/15/25 09:45) PER ALLERGY SKIN TESTING [place] Adverse Reaction (Unknown, Uncoded 07/15/25 09:45) PER ALLERGY SKIN TESTING Family History (Last Reviewed 10/09/25 @ 23:39 by Ferdinand Sandhu MD) Sibling Family history of malignant neoplasm of stomach Father Family history of coronary artery disease Family history of cardiovascular disease Mother Family history of osteoporosis Family history of development disorder Administered/Completed Medications Discontinued Medications Hydromorphone HCl (Hydromorphone Hcl Inj (*Crx) 1 Mg/Ml Syr) 0.5 mg IV PUSH ONCE STA Stop: 10/09/25 23:38 Last Admin: 10/09/25 23:45 Dose: 0.5 mg Documented By: TBR Lactated Ringer's (Lr - Lactated Ringers Iv) 1,000 mls @ 999 mls/hr IV CONT .Q1H1M STA Stop: 10/10/25 00:37 Last Infusion: 10/10/25 01:01 Dose: Infused Documented By: Admin: 10/09/25 23:44 Dose: 999 mls/hr Documented By: TBR Metronidazole (Flagyl 500 Mg/Iso Soln 100 Ml) 500 mg in 100 mls @ 100 mls/hr IVPB ONCE STA Stop: 10/10/25 02:52 Last Admin: 10/10/25 02:03 Dose: 100 mls/hr Documented By: TBR Ondansetron HCl (Ondansetron Inj 4 Mg/2 Ml Vial) 4 mg IV PUSH ONCE STA Stop: 10/09/25 23:38 Last Admin: 10/09/25 23:45 Dose: 4 mg Documented By: TBR Interventions/Assessments IV / Saline Lock, Insert Start: 10/09/25 23:13 Freq: STAT Status: Active Protocol: Document 10/09/25 23:37 TBR (Rec: 10/09/25 23:37 TBR [id number]) IV Assessment Peripheral Access Left Antecubital IV Catheter Access Initiated IV Insertion Date 10/09/25 IV Insertion Time 23:37 Catheter Gauge 20 IV Insertion 1 Attempts Ultrasound Used for No Placement IV Site Assessment WNL IV Care and WNL Maintenance PA: Gastrointestinal Assessment Start: 10/09/25 22:51 Freq: Status: Active Protocol: Document 10/09/25 23:07 TBR (Rec: 10/09/25 23:07 TBR [id number]) GI Assessment Gastrointestinal Pain Symptoms Description Tender Pattern Normal Last Vital Signs Temperature 98 F 10/09/25 22:52 Pulse Rate 79 10/09/25 23:06 Respiratory Rate 19 10/09/25 23:06 Pulse Oximetry 99 10/09/25 23:06 Blood Pressure 136/96 H 10/09/25 23:06 Blood Pressure Mean 107 10/09/25 23:06 Blood Pressure Position Sitting 10/09/25 22:52 Oxygen Delivery Room Air 10/09/25 22:52 Weight 78.2 kg 10/09/25 22:52 Last Result - Abnormals Only Plt Count 136 k/mm3 (150-375) L 10/09/25 23:31 Lymph % (Auto) 17.1 % (18.3-44.2) L 10/09/25 23:31 [place] % (Auto) 9.9 % (2.6-8.5) H 10/09/25 23:31 [place] # (Auto) 0.9 K/mm3 (0.1-0.6) H 10/09/25 23:31 BUN 28 mg/dL (9-20) H D 10/09/25 23:31 Glucose 142 mg/dL (65-110) H 10/09/25 23:31 Ur Specific [place] 1.044 (1.001-1.035) H 10/09/25 23:31 Most Recent Suicide Severity Rating Suicide Severity Rating NO RISK INDICATED 10/09/25 22:52
[2025-10-10] MEDS: cefTRIAXone 2 GM in SODIUM CHLORIDE 0.9% IV 100 ML 200 ML IVPB (03:14)
[2025-10-10 03:56] VITALS: BP 118/70; PULSE 70; RESP 16; TEMP 36.9; O2SAT 95; BMI 26.2
[2025-10-10] MEDS: HYDROmorphone HCL INJ (*CRX) 1 MG/ML SYR 0.5 MG IV PUSH (04:11)
--- NOTE | 2025-10-10 04:49 | PC.NURSE ---
patient arrived to the floor at 345 with . patient given pain medications and resting quietly at this time.
--- NOTE | 2025-10-10 05:01 | PM.IMHP ---
H&P: HPI History of Present Illness Date/Time: 10/10/25 05:01 Chief Complaint: Abdominal pain Narrative: This is a 75-year-old male who has a past history of a CVA that has only affected his memory. He is on a daily aspirin. The patient came to the emergency room with complaints of right lower quadrant pain. The patient was awoken with this pain in the middle a night. Initially the pain was in the payal umbilical area but he eventually migrated towards the right lower quadrant. The pain radiates into his right groin. He denies any urinary symptoms or any nausea or vomiting. The patient stated that his temperature was higher than normal but he did not have a fever. He denies any chest pain or shortness of breath. His white count was found to be normal. Platelet count is 136. His glucose is 142. CT of the abdomen and pelvis with contrast was read is dilated appendix, 10 mm with periappendiceal stranding suggesting appendicitis. No bowel obstruction. Large stool burden. Diverticulosis. No hydronephrosis or renal calculus. Urinary bladder wall thickening, nonspecific. Correlate with urinalysis. Surgery has been consulted. The patient was started on Rocephin and Flagyl. He was also given Dilaudid and Zofran. The patient is being admitted to observation status on the date of service of 10/10/2025. Review of Systems Constitutional: Constitutional: Reports as per HPI and Reports no additional constitutional complaints Eyes: Eyes: Reports as per HPI and Reports no additional eye complaints ENT: Reports no additional ear, nose, mouth, and throat complaints and Reports Normal hearing present Cardiovascular: Cardiovascular: Reports no additional cardiovascular complaints Respiratory: Respiratory: Reports as per HPI and Reports no additional respiratory complaints Gastrointestinal: Gastrointestinal: Reports as per HPI and Reports no additional gastrointestinal complaints Musculoskeletal: Musculoskeletal: Reports no additional musculoskeletal complaints Integumentary/Breasts: Skin/Breast: Reports system reviewed and no additional complaints, except as docu Neurologic: Reports no additional neurologic complaints and Reports Normal hearing present Psychiatric: Psychiatric: Reports no additional psychiatric complaints and Reports as per HPI Hematologic/Lymphatic: Hematologic/Lymphatic: Reports no additional hematologic/lymphatic complaints Allergic/Immunologic: Allergic/Immunologic: Reports no additional allergic/immunologic complaints [facility] Past Medical History Medical History Kidney stone Acute appendicitis History of CVA (cerebrovascular accident) Memory deficit Hemorrhoids Stroke CRUZITO (generalized anxiety disorder) Gastro-esophageal reflux disease without esophagitis Epilepsy, unspecified, not intractable, without status epilepticus Hypothyroidism Mixed hyperlipidemia Surgical History Surgical History Hx of hemorrhoidectomy REUA, excision of external hemorrhoids performed on 08/28/22 History of heart surgery History of hernia repair right inguinal hernia repair Family History Family History Sibling , in his early 50's Family history of malignant neoplasm of stomach Father , in his early 50's Family history of coronary artery disease Family history of cardiovascular disease Mother Family history of osteoporosis Family history of development disorder Social History Social History Social History: He is and lives with his . He has 2 children from a previous relationship. He is retired from an [employer] firm. Code status: Full code Smoking status: Never smoker Second hand tobacco smoke exposure: No Alcohol intake: never Substance use: never Substance use type: does not use Lack of Transportation: No Lack of Food: Never True Current Housing: I Have Housing Concerned About Future Housing: No Difficulty Paying Gas/Electric Bills: No Difficulty Paying for Meds: No Currently Unemployed: No Education: Associate Degree Difficulty w/ Childcare or Family Care: No Living arrangements: with family Occupation/Education: retired Gender identity (if verbalized by the patient): Male Sexual Orientation (if Verbalized by the Patient): Straight or Heterosexual Spiritual care concerns: No Meds Home Medications and Allergies Home Medications ?Medication ?Instructions ?Recorded ?Confirmed ?Type aspirin 81 mg tablet,delayed 81 mg PO DAILY 02/03/20 10/10/25 History release (Adult Aspirin Regimen) glucosamine sulf dipot 1 cap PO DAILY 08/18/22 10/10/25 History chlr,msm,chond 550 mg-C 30 mg-mateus 1 mg capsule (Glucosamine Chondroitin) multivitamin 1 tablet PO DAILY 08/18/22 10/10/25 History omega 0-kqr-gzf-fish oil 1,000 mg 1 cap PO DAILY 08/18/22 10/10/25 History (120 mg-180 mg) capsule (Fish Oil) omeprazole 20 mg tablet,delayed 20 mg PO DAILY 08/18/22 10/10/25 History release sertraline 50 mg tablet 75 mg (1.5 x 50 mg) PO DAILY #135 03/18/25 10/10/25 Rx tabs buspirone 5 mg tablet 5 mg PO BID #180 tabs 03/24/25 10/10/25 Rx simvastatin 40 mg tablet 40 mg PO DAILY #90 tabs 04/08/25 10/10/25 Rx levothyroxine 150 mcg tablet 150 mcg PO DAILY #30 tabs 07/21/25 10/10/25 Rx divalproex 250 mg tablet,extended See Rx Instructions .Route 07/30/25 10/10/25 Rx release 24 hr .COMPLEX #270 tabs Allergies Allergy/AdvReac Type Severity Reaction Status Date / Time milk Allergy Severe BREATHING Verified 10/10/25 04:03 DIFFICULTY/POSITIVE ON ALLERGY TESTING Penicillins Allergy Unknown Unknown Verified 10/10/25 04:03 spinach AdvReac Unknown AVOIDS R/T Verified 10/10/25 04:03 KIDNEY STONES Pork AdvReac Unknown PER Uncoded 07/15/25 09:45 ALLERGY SKIN TESTING [place] AdvReac Unknown PER Uncoded 07/15/25 09:45 ALLERGY SKIN TESTING Vital Signs Vital Signs - 24 hr 10/09/25 22:52 10/09/25 23:05 10/09/25 23:06 Temperature 98 F Pulse Rate 86 79 Respiratory Rate 16 19 Blood Pressure 149/86 H 136/96 H Pulse Oximetry 100 100 99 Oxygen Delivery Room Air 10/10/25 03:56 Temperature 98.4 F Pulse Rate 70 Respiratory Rate 16 Blood Pressure 118/70 Pulse Oximetry 95 Oxygen Delivery Exam Const: General: cooperative, healthy appearing, comfortable, no acute distress, well developed, awake, Physically active, average body habitus and well nourished Nutritional Appearance: average body habitus and well nourished Orientation/consciousness: oriented to person and oriented to place Other: The patient has a very poor memory from her previous stroke. HENMT: Head: normal to inspection, No palpable skull fracture present, normocephalic, atraumatic and abrasion Eyes: General: appearance normal, both eyes and all related structures Alignment and Position: alignment normal Periorbital: periorbital findings normal Eyelids: eyelids normal Conjunctivae: conjunctivae normal Sclera: sclerae normal Cornea: corneas normal Pupils: Equal, round and reactive pupils present and Pupil accommodation reflex normal EOM: EOMs intact bilaterally Neck: Neck: normal visual inspection, full ROM and no lymphadenopathy Chest: Chest palpation & inspection: normal inspection of the chest Resp: Effort & Inspection: normal respiratory effort Auscultation: clear to auscultation bilaterally Cardio: Palpation: normal PMI Rate: regular rate Rhythm: regular rhythm Heart sounds: S1 normal heart sound present and S2 normal heart sound present Peripheral pulses: Peripheral pulses 2+ throughout GI: Inspection: normal to inspection Auscultation: normal bowel sounds Rectal Exam: deferred Other: Mild right lower quadrant tenderness with deep palpation. Skin: General skin exam: normal color Lesions: no lesions Rashes: no rashes Trauma: no lacerations or abrasions Wounds: no wounds Hair: normal Nails: normal Neuro: General: oriented to person, oriented to place, oriented to time and patient oriented x3 Cranial nerves: Yes Equal, round and reactive pupils present and Yes Normal hearing present Cognition (Neuro): normal cognition Speech: normal speech Gait exam (Neuro): Normal gait present Motor exam (neuro): 5/5 motor strength present throughout Sensory Exam: normal sensation Extrem: General: normal to inspection Right upper extremity: normal to inspection and shoulder/upper arm Left upper extremity: normal to inspection and shoulder/upper arm Right lower extremity: normal to inspection Left lower extremity: normal to inspection Psych: Appearance: grossly normal Mental Status: mental status grossly normal Speech and movement: Normal speech and movement present Affect: normal affect Attitude: cooperative Thought process: Normal thought process present Thought content: Yes Normal thought content present Insight: Good insight present (Psych) Judgement: Good judgement present (Psych) H&P: Results Labs Labs: Short CBC 10/09/25 Range/Units 23:31 WBC 9.0 (4.5-10.0) K/mm3 Hgb 14.1 (14.0-18.0) g/dL Hct 42.2 (42.0-52.0) % Plt Count 136 L (150-375) k/mm3 BMP 10/09/25 23:31 Sodium 137 Potassium 4.0 Chloride 104 Carbon Dioxide 27 BUN 28 H D Creatinine 0.89 Glucose 142 H Calcium 9.1 Liver Function 10/09/25 Range/Units 23:31 Total Bilirubin 0.5 (0.2-1.3) mg/dL AST 29 (17-59) U/L ALT 20 (6-50) U/L Alkaline Phosphatase 68 (38-126) U/L Albumin 4.0 (3.5-5.1) g/dL Urine 10/09/25 Range/Units 23:31 Urine Color Yellow (Yellow) Urine Appearance Clear (Clear) Urine pH 6.0 (5.0-9.0) Ur Specific [place] 1.044 H (1.001-1.035) Urine Protein Negative (Negative) mg/dL Urine Glucose (UA) Negative (Negative) mg/dL Imaging CT scan - abdomen: Radiologist's impression: Preliminary CT abdomen and pelvis with contrast. Impression dilated appendix, 10 mm with periappendiceal stranding suggesting appendicitis. No bowel obstruction. Large stool burden. Diverticulosis. No hydronephrosis or renal calculus. Urinary bladder wall thickening, nonspecific. Correlate with urinalysis. Assessment and Plan Assessment and plan (1) Acute appendicitis: Code(s): K35.80 - Unspecified acute appendicitis Status: Acute Assessment and Plan: -Preliminary CT abdomen and pelvis with contrast. Impression dilated appendix, 10 mm with periappendiceal stranding suggesting appendicitis. No bowel obstruction. Large stool burden. Diverticulosis. No hydronephrosis or renal calculus. Urinary bladder wall thickening, nonspecific. Correlate with urinalysis. -his white count is not elevated. -surgery has been consulted. -postop care per surgery. -postop pain management per surgery. -the patient was started on empiric antibiotics of Rocephin and Flagyl. -continue with IV fluids. -the patient is NPO at this time. -p.r.n. Zofran. (2) History of CVA (cerebrovascular accident): Code(s): Z86.73 - Personal history of transient ischemic attack (TIA), and cerebral infarction without residual deficits Status: Acute Assessment and Plan: -his aspirin is currently on hold at this time. -the patient stated the only thing that this stroke is affected is is memory. (3) CRUZITO (generalized anxiety disorder): Code(s): F41.1 - Generalized anxiety disorder Status: Acute Assessment and Plan: -the patient is NPO at this time. -may resume sertraline and buspirone when taking p.o. fluids again. (4) Mixed hyperlipidemia: Code(s): E78.2 - Mixed hyperlipidemia Status: Acute Assessment and Plan: The patient is on [place] 3 and simvastatin at home. He is currently NPO (5) Hypothyroidism: Code(s): E03.9 - Hypothyroidism, unspecified Status: Acute Assessment and Plan: -resume levothyroxine once he is no longer NPO Quality VTE Prophylaxis VTE prophylaxis: mechanical ordered
--- NOTE | 2025-10-10 05:37 | ECG_ITS ---
Test Date: 2025-10-10 07:11:33 Measurements Intervals [place] Rate: 69 P: 38 NE: 192 QRS: 77 QRSD: 103 T: 47 QT: 386 QTc: 414 Interpretive Statements SINUS RHYTHM No previous ECG available for comparison Electronically Signed On 10-10-2025 12:05:15 [employer]OS DEVELOPER by Lizeth Ch M.D.
--- NOTE | 2025-10-10 05:48 | WPDANESEPP ---
Anes - Eval Pre Procedure Procedure: Laparoscopic appendectomy Date/Time: 10/10/25 05:48 Surgeon: Maxim Pre Op Diagnosis: Acute appendicitis Patient Data Age: 75 Gender: M Height: 1.73 m Weight: 78.1 kg Last Vital Signs Temp 98.4 F 10/10/25 03:56 Pulse 70 10/10/25 03:56 Resp 16 10/10/25 03:56 BP 118/70 10/10/25 03:56 Pulse Ox 95 10/10/25 03:56 O2 Del Method Room Air 10/09/25 22:52 Allergies Allergy/AdvReac Type Severity Reaction Status Date / Time milk Allergy Severe BREATHING Verified 10/10/25 04:03 DIFFICULTY/POSITIVE ON ALLERGY TESTING Penicillins Allergy Unknown Unknown Verified 10/10/25 04:03 spinach AdvReac Unknown AVOIDS R/T Verified 10/10/25 04:03 KIDNEY STONES Pork AdvReac Unknown PER Uncoded 07/15/25 09:45 ALLERGY SKIN TESTING [place] AdvReac Unknown PER Uncoded 07/15/25 09:45 ALLERGY SKIN TESTING Home Medications ?Medication ?Instructions ?Recorded ?Confirmed ?Type aspirin 81 mg tablet,delayed 81 mg PO DAILY 02/03/20 10/10/25 History release (Adult Aspirin Regimen) glucosamine sulf dipot 1 cap PO DAILY 08/18/22 10/10/25 History chlr,msm,chond 550 mg-C 30 mg-mateus 1 mg capsule (Glucosamine Chondroitin) multivitamin 1 tablet PO DAILY 08/18/22 10/10/25 History omega 9-qat-bfm-fish oil 1,000 mg 1 cap PO DAILY 08/18/22 10/10/25 History (120 mg-180 mg) capsule (Fish Oil) omeprazole 20 mg tablet,delayed 20 mg PO DAILY 08/18/22 10/10/25 History release sertraline 50 mg tablet 75 mg (1.5 x 50 mg) PO DAILY #135 03/18/25 10/10/25 Rx tabs buspirone 5 mg tablet 5 mg PO BID #180 tabs 03/24/25 10/10/25 Rx simvastatin 40 mg tablet 40 mg PO DAILY #90 tabs 04/08/25 10/10/25 Rx levothyroxine 150 mcg tablet 150 mcg PO DAILY #30 tabs 07/21/25 10/10/25 Rx divalproex 250 mg tablet,extended See Rx Instructions .Route 07/30/25 10/10/25 Rx release 24 hr .COMPLEX #270 tabs Laboratory Tests 10/09/25 23:31 WBC 9.0 K/mm3 (4.5-10.0) RBC 4.72 M/mm3 (4.6-6.20) Hgb 14.1 g/dL (14.0-18.0) Hct 42.2 % (42.0-52.0) MCV 89.4 fl (80-100) MCH 29.9 pg (26-34) MCHC 33.4 g/dl (32-36) RDW 13.6 % (11.5-14.5) Plt Count 136 L k/mm3 (150-375) MPV 9.8 fl (7.4-10.4) Immature Gran % (Auto) 0.3 % (0-0.5) Neut % (Auto) 69.0 % (45.5-73.1) Lymph % (Auto) 17.1 L % (18.3-44.2) [place] % (Auto) 9.9 H % (2.6-8.5) Eos % (Auto) 3.3 % (0-4.4) Baso % (Auto) 0.4 % (0.2-1.2) Lymph # (Auto) 1.54 K/mm3 (0.9-3.2) [place] # (Auto) 0.9 H K/mm3 (0.1-0.6) Eos # (Auto) 0.3 K/mm3 (0-0.3) Baso # (Auto) 0.0 K/mm3 (0.0-0.1) Abs Immat Gran (auto) 0.03 K/mm3 (0.00-0.031) Absolute Neuts (auto) 6.2 K/mm3 (1.3-6.7) Absolute Nucleated RBC 0.000 K/mm3 (0.0-0.012) Nucleated RBC % 0.0 % (0.0-0.2) Sodium 137 mmol/L (137-145) Potassium 4.0 mmol/L (3.4-5.0) Chloride 104 mmol/L (98-107) Carbon Dioxide 27 mmol/L (22-30) Anion Gap 6 mmol/L (4-12) BUN 28 H D mg/dL (9-20) Creatinine 0.89 mg/dL (0.7-1.3) Estim Creat Clear Calc 60 ml/min Estimated GFR > 60 (59 - ) Glucose 142 H mg/dL (65-110) Calcium 9.1 mg/dL (8.4-10.2) Total Bilirubin 0.5 mg/dL (0.2-1.3) AST 29 U/L (17-59) ALT 20 U/L (6-50) Alkaline Phosphatase 68 U/L (38-126) Total Protein 7.0 g/dL (6.3-8.2) Albumin 4.0 g/dL (3.5-5.1) Lipase 93 U/L (23-300) Urine Color Yellow (Yellow) Urine Appearance Clear (Clear) Urine pH 6.0 (5.0-9.0) Ur Specific [place] 1.044 H (1.001-1.035) Urine Protein Negative mg/dL (Negative) Urine Glucose (UA) Negative mg/dL (Negative) Urine Ketones Negative mg/dL (Negative) Ur Blood (Man) Negative (Negative) Urine Nitrate Negative (Negative) Urine Bilirubin Negative (Negative) Urine Urobilinogen 0.2 mg/dL (<2.0) Leukocyte Esterase Rfl Negative GIANCARLO/UL (Negative) Patient hx anesthesia problems: none Family hx anesthesia problems: none Results Review: All pre-operative results and documents have been reviewed as part of the pre-operative evaluation. [facility] Past Medical History Medical History (Updated 10/10/25 @ 05:49 by Modesto Fonseca Jr., CRNA) Kidney stone Acute appendicitis History of CVA (cerebrovascular accident) Memory deficit Hemorrhoids Stroke CRUZITO (generalized anxiety disorder) Gastro-esophageal reflux disease without esophagitis Epilepsy, unspecified, not intractable, without status epilepticus Hypothyroidism Mixed hyperlipidemia Surgical History Surgical History Hx of hemorrhoidectomy REUA, excision of external hemorrhoids performed on 08/28/22 History of heart surgery History of hernia repair right inguinal hernia repair Family History Family History Sibling , in his early 50's Family history of malignant neoplasm of stomach Father , in his early 50's Family history of coronary artery disease Family history of cardiovascular disease Mother Family history of osteoporosis Family history of development disorder Social History Social History Social History: He is and lives with his . He has 2 children from a previous relationship. 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 Code status: Full code Smoking status: Never smoker Second hand tobacco smoke exposure: No Alcohol intake: never Substance use: never Substance use type: does not use Lack of Transportation: No Lack of Food: Never True Current Housing: I Have Housing Concerned About Future Housing: No Difficulty Paying Gas/Electric Bills: No Difficulty Paying for Meds: No Currently Unemployed: No Education: Associate Degree Difficulty w/ Childcare or Family Care: No Living arrangements: with family Occupation/Education: retired Gender identity (if verbalized by the patient): Male Sexual Orientation (if Verbalized by the Patient): Straight or Heterosexual Spiritual care concerns: No Exam Day of Procedure 10/10/25 05:48 Patient weight: overweight
[2025-10-10] MEDS: LACTATED RINGERS 500 ML 100 ML IV CONT (06:05)
[2025-10-10 06:07] LABS: Hematocrit 40.0 % (42.0-52.0); Hemoglobin 13.1 g/dL (14.0-18.0); Immature Granulocyte Percent A 0.4 % (0-0.5); Lymphocytes Absolute Auto 2.09 K/mm3 (0.9-3.2); Mean Corpuscular HGB Conc 32.8 g/dl (32-36); Mean Corpuscular Hemoglobin 29.9 pg (26-34); Mean Corpuscular Volume 91.3 fl (80-100); Nucleated Red Blood Cells Absolute Auto 0.000 K/mm3 (0.0-0.012); Nucleated Red Blood Cells Perc 0.0 % (0.0-0.2); Platelet Count Result 118 k/mm3 (150-375); Red Blood Count 4.38 M/mm3 (4.6-6.20); White Blood Count 9.6 K/mm3 (4.5-10.0)
[2025-10-10 06:33] LABS: Anion Gap 4 mmol/L (4-12); Blood Urea Nitrogen 23 mg/dL (9-20); Calcium 8.7 mg/dL (8.4-10.2); Carbon Dioxide 29 mmol/L (22-30); Chloride 104 mmol/L (98-107); Estimated CRCL calculation 59 ml/min; Estimated Glomerular Filt Rate > 60; Glucose 103 mg/dL (65-110); Potassium 3.9 mmol/L (3.4-5.0); Sodium 137 mmol/L (137-145)
--- NOTE | 2025-10-10 07:34 | WPDCN ---
Assessment and Plan Assessment and plan (1) Acute appendicitis: Code(s): K35.80 - Unspecified acute appendicitis Status: Acute Assessment and Plan: Patient appears to have uncomplicated acute appendicitis. He has been given IV antibiotics kept NPO. Will plan on taking to the operating this morning for a laparoscopic appendectomy, possible open. Risks, benefits, indications, and expected outcomes were discussed in detail with the patient and/or family. They understand and I have answered all other questions. They wished to proceed with surgery as outlined above. (2) History of CVA (cerebrovascular accident): Code(s): Z86.73 - Personal history of transient ischemic attack (TIA), and cerebral infarction without residual deficits Status: Acute Assessment and Plan: Remote history of stroke. Stable. Only on aspirin for antiplatelet therapy. No significant physical residual effects. HPI Data of Consult Date/Time: 10/10/25 07:34 Requesting Physician: Wesley Jiang MD Primary Care Provider: Ezio Neil MD Consult Narrative Reason for consult: Acute appendicitis Narrative: William Florez is a 75 year old male who presents to the emergency room with about a 1 day history of worsening periumbilical abdominal pain which then localized the right side of the abdomen. He was hemodynamically stable and presents to the emergency room. No fever. White blood cell count was 9000. CT scan abdomen pelvis was performed showing a appendix which was dilated to 1.2cm with wall thickening at the base of the appendix and some periappendiceal inflammation. No abscess or perforation was seen. Patient has had a prior inguinal hernia repair. No other abdominal surgery. He has had a prior history of at least 1 stroke. He is only on aspirin for antiplatelet therapy. He has no weakness or sensory residuals however he states that his memory is not as good after strokes. Review of Systems Review of Systems: The remainder of the review of systems to include constitutional, HEENT, cardiovascular, respiratory, GI, , integumentary, musculoskeletal, endocrine, immunologic, hematologic, psychiatric, and neurologic are all negative except for which is mentioned above in the HPI. [facility] Past Medical History Medical History Kidney stone Acute appendicitis History of CVA (cerebrovascular accident) Memory deficit Hemorrhoids Stroke CRUZITO (generalized anxiety disorder) Gastro-esophageal reflux disease without esophagitis Epilepsy, unspecified, not intractable, without status epilepticus Hypothyroidism Mixed hyperlipidemia Surgical History Surgical History Hx of hemorrhoidectomy REUA, excision of external hemorrhoids performed on 08/28/22 History of heart surgery History of hernia repair right inguinal hernia repair Family History Family History Sibling , in his early 50's Family history of malignant neoplasm of stomach Father , in his early 50's Family history of coronary artery disease Family history of cardiovascular disease Mother Family history of osteoporosis Family history of development disorder Social History Social History Social History: He is and lives with his . He has 2 children from a previous relationship. He is retired from an [employer] firm. Code status: Full code Smoking status: Never smoker Second hand tobacco smoke exposure: No Alcohol intake: never Substance use: never Substance use type: does not use Lack of Transportation: No Lack of Food: Never True Current Housing: I Have Housing Concerned About Future Housing: No Difficulty Paying Gas/Electric Bills: No Difficulty Paying for Meds: No Currently Unemployed: No Education: Associate Degree Difficulty w/ Childcare or Family Care: No Living arrangements: with family Occupation/Education: retired Gender identity (if verbalized by the patient): Male Sexual Orientation (if Verbalized by the Patient): Straight or Heterosexual Spiritual care concerns: No Meds Home Medications and Allergies Home Medications ?Medication ?Instructions ?Recorded ?Confirmed ?Type aspirin 81 mg tablet,delayed 81 mg PO DAILY 02/03/20 10/10/25 History release (Adult Aspirin Regimen) glucosamine sulf dipot 1 cap PO DAILY 08/18/22 10/10/25 History chlr,msm,chond 550 mg-C 30 mg-mateus 1 mg capsule (Glucosamine Chondroitin) multivitamin 1 tablet PO DAILY 08/18/22 10/10/25 History omega 8-zon-nyj-fish oil 1,000 mg 1 cap PO DAILY 08/18/22 10/10/25 History (120 mg-180 mg) capsule (Fish Oil) omeprazole 20 mg tablet,delayed 20 mg PO DAILY 08/18/22 10/10/25 History release sertraline 50 mg tablet 75 mg (1.5 x 50 mg) PO DAILY #135 04/30/25 11/22/25 Rx tabs buspirone 5 mg tablet 5 mg PO BID #180 tabs 03/24/25 10/10/25 Rx simvastatin 40 mg tablet 40 mg PO DAILY #90 tabs 04/08/25 10/10/25 Rx levothyroxine 150 mcg tablet 150 mcg PO DAILY #30 tabs 07/21/25 10/10/25 Rx divalproex 250 mg tablet,extended See Rx Instructions .Route 07/30/25 10/10/25 Rx release 24 hr .COMPLEX #270 tabs Allergies Allergy/AdvReac Type Severity Reaction Status Date / Time milk Allergy Severe BREATHING Verified 10/10/25 04:03 DIFFICULTY/POSITIVE ON ALLERGY TESTING Penicillins Allergy Unknown Unknown Verified 10/10/25 04:03 spinach AdvReac Unknown AVOIDS R/T Verified 10/10/25 04:03 KIDNEY STONES Pork AdvReac Unknown PER Uncoded 07/15/25 09:45 ALLERGY SKIN TESTING [place] AdvReac Unknown PER Uncoded 07/15/25 09:45 ALLERGY SKIN TESTING Vital Signs Vital Signs - 24 hr 10/09/25 22:52 10/09/25 23:05 10/09/25 23:06 Temperature 36.6 C Pulse Rate 86 79 Respiratory Rate 16 19 Blood Pressure 149/86 H 136/96 H Pulse Oximetry 100 100 99 Oxygen Delivery Room Air 10/10/25 03:56 Temperature 36.9 C Pulse Rate 70 Respiratory Rate 16 Blood Pressure 118/70 Pulse Oximetry 95 Oxygen Delivery Exam Const: General: comfortable and no acute distress HENMT: Ears: TM's normal bilaterally Face/Nose/Sinus: Normal nares present Mouth: Yes moist mucous membranes Eyes: General: appearance normal, both eyes and all related structures Sclera: sclerae normal Pupils: Equal, round and reactive pupils present EOM: EOMs intact bilaterally Neck: Neck: supple and no JVD Resp: Effort & Inspection: normal respiratory effort Auscultation: clear to auscultation bilaterally Cardio: Rate: regular rate Rhythm: regular rhythm GI: Other: As soft and nondistended. Mild tenderness to palpation the right side of the abdomen almost right upper quadrant. No rebound tenderness and no masses. No ventral hernias. : Male General Exam: Yes normal external exam Skin: General skin exam: normal color and no rashes or lesions noted Neuro: General: gait normal Speech: normal speech Motor exam (neuro): 5/5 motor strength present throughout Sensory Exam: normal sensation Extrem: General: normal to inspection Psych: Mental Status: mental status grossly normal Affect: normal affect Results Labs 10/10/25 05:59 10/10/25 05:59 Labs: Short CBC 10/09/25 10/10/25 Range/Units 23:31 05:59 WBC 9.0 9.6 (4.5-10.0) K/mm3 Hgb 14.1 13.1 L (14.0-18.0) g/dL Hct 42.2 40.0 L (42.0-52.0) % Plt Count 136 L 118 L (150-375) k/mm3 BMP 10/09/25 10/10/25 23:31 05:59 Sodium 137 137 Potassium 4.0 3.9 Chloride 104 104 Carbon Dioxide 27 29 BUN 28 H D 23 H Creatinine 0.89 0.91 Glucose 142 H 103 Calcium 9.1 8.7 Liver Function 10/09/25 Range/Units 23:31 Total Bilirubin 0.5 (0.2-1.3) mg/dL AST 29 (17-59) U/L ALT 20 (6-50) U/L Alkaline Phosphatase 68 (38-126) U/L Albumin 4.0 (3.5-5.1) g/dL Urine 10/09/25 Range/Units 23:31 Urine Color Yellow (Yellow) Urine Appearance Clear (Clear) Urine pH 6.0 (5.0-9.0) Ur Specific [place] 1.044 H (1.001-1.035) Urine Protein Negative (Negative) mg/dL Urine Glucose (UA) Negative (Negative) mg/dL Imaging Radiologist's impression: CT Scan Report Signed Patient: William Florez : 1950 MR#: [id number] Age: 75 Acct:[id number] Loc: [id number] ADM Date: 10/10/[address]: Brett Jiang M.D. Ordering Physician: Ferdinand Sandhu MD Date of Service: 10/09/25 Procedure(s): CT abdomen pelvis w con Accession Number(s): [id number] cc: Ezio Neil MD; Wesley Jiang MD; Ferdinand Sandhu MD~ EXAMINATION: CT abdomen pelvis w con DATE: 10/10/2025 00:44 INDICATION: Right lower quadrant abdominal pain. TECHNIQUE: Computed tomography (CT) of the abdomen and pelvis was performed with 100 mL Omnipaque 350 intravenous contrast. Automated exposure control and iterative reconstruction technique were employed. The dose-length product was 467.93 mGy-cm. COMPARISON: CT abdomen and pelvis 01/22/18 FINDINGS: The visualized portions of lung bases demonstrate mild atelectasis. No pleural effusion. The heart size is normal. There is a closure device of the interatrial septum. There are coronary artery calcifications. No pericardial effusion. There are cysts in the liver measuring up to 8 mm. Calcifications in the spleen are consistent with old granulomatous disease. The gallbladder, pancreas, and adrenal glands are normal. There are cysts in the kidneys measuring up to 12 mm on the right. The prostate is moderately enlarged. There is diverticulosis of the colon without evidence of diverticulitis. The appendix measures 12 mm in diameter. There is fat stranding adjacent to the appendix and wall thickening of base of the cecum, consistent with appendicitis. There are no pathologically enlarged lymph nodes. There is no free intraperitoneal fluid. There is severe lower lumbar spondylosis and moderate thoracic spondylosis IMPRESSION: 1. Acute appendicitis. Reviewed, dictated and finalized at location E. [employer] Please be advised this is a medical document. It is intended for [id number] communication. It is written in medical language and may contain unfamiliar abbreviations or verbiage. Medical documents are intended to carry relevant information, facts as evident, and the clinical opinion of the practitioner at the time of the encounter. This report may have been done utilizing a voice recognition system. Attempts have been made to correct errors. However, there may be uncorrected grammatical, spelling, and recognition errors present. The file time of this note does not necessarily represent the time of service. Dictated By: Dylan Farias MD 10/10/25 0659 Signed By: <Electronically signed by Dylan Farias MD in OV> 10/10/25 0703
--- NOTE | 2025-10-10 07:41 | WPDHPUPDATE1 ---
History and Physical Update Update Date/Time: 10/10/25 07:41 History and Physical has been reviewed, including an updated exam of the patient. There are NO changes in the patient's condition. Risks, benefits, and alternatives have been discussed and questions answered. Patient agrees to proceed with procedure.
--- NOTE | 2025-10-10 07:45 | P.PNAN_ITS ---
Anes - Eval Final PreProcedure Day of Procedure 10/10/25 07:45 Patient weight: overweight Heart: regular rate and rhythm Lungs: clear to auscultation Airway: Mallampati scale class II Neurological: alert and oriented Last oral intake: >/= 8 hours ASA classification: III Emergent: no Anesthetic plan: proceed Anesthesia type and monitoring: general ETT and standard monitoring Results Review: All pre-operative results and documents have been reviewed as part of the pre- operative evaluation. Informed Consent: The patient's anesthetic plan and its attendant risks and benefits were discussed with the patient/family/POA. Questions were solicited and answers provided to the satisfaction of the patient/family/POA.
[2025-10-10] MEDS: LIDO 1%/EPINEPHRINE 1:100,000 50 ML VIAL (08:14)
[2025-10-10] MEDS: BUPivacaine HCL 0.5% 10 ML AMP 30 ML INFILTRATE (08:14)
[2025-10-10] MEDS: LACTATED RINGERS 1,000 ML 30 ML IV CONT (08:15)
--- NOTE | 2025-10-10 08:29 | S_PTH ---
PATIENT: William Florez LOC: [id number] U#:[id number] AGE/SX: 75/M ROOM: 347 RE10/10/[address]: Wesley Jiang MD : 1950 BED: 01 DIS: 10/10/2025 SPEC #: [id number] RECD: 10/12/25 07:41 STATUS: PALMA RELemuel #: [id number] MARY: 10/10/25 08:[address]: Mike Pan DEPT: [facility] Surgical RECD BY: Ingris Dupree ENTERED: 10/12/25 07:41 SP TYPE: Surgical OTHR DR: MD Wesley Alvarenga MD Tissues: A - Appendix Procedures: Hematoxylin and Eosin Stain Gross and Microscopic Level 3
[2025-10-10] MEDS: KETOROLAC 15 MG/ML VIAL (*BKC) IV PUSH (08:33)
[2025-10-10 08:45] VITALS: BP 162/84; PULSE 74; TEMP 36.2; O2SAT 99
--- NOTE | 2025-10-10 08:52 | W.PM.PROC2 ---
Procedure Note - Detailed Date of Procedure 10/10/25 Pre-op Diagnosis Acute appendicitis Post-op Diagnosis Same Procedure Performed Laparoscopic appendectomy Surgeon Mike Pan MD Supervisor Graphite Sadie PIERSON Anesthesia General Indications Patient is a 75-year-old male who presented to the emergency with a 1 day history of worsening right-sided abdominal pain. No leukocytosis but a CT scan abdomen pelvis showed a dilated appendix up to 1.2cm in diameter with some reactive thickening at the base and periappendiceal inflammation. No perforation was seen. He is being brought to the OR now for emergent laparoscopic appendectomy. Findings Patient had early appendicitis with inflammation of the appendix extending to the base of the appendix but certainly the tissue was viable and not necrotic. There was no perforation. Very mild reactive thickening of the base of the appendix. No periappendiceal abscess. Description of Procedure After informed consent was obtained patient brought to the operating room placed supine position and general endotracheal anesthesia was administered. A Monge catheter was placed decompress the bladder. The abdomen was then prepped and draped usual sterile fashion. A time-out was then performed correctly identifying the patient as well as the procedure to be performed. He was previously given scheduled IV antibiotics. I then entered the abdomen left upper quadrant utilizing a 5mm Optiview port. Once inside the abdomen insufflated to adequate pneumoperitoneum of 15mmHg of CO2. There were no adhesions to obscure my view of the right side of the abdomen. I then placed a 5mm suprapubic trocar port as well as a 12mm periumbilical trocar port and a 5mm right lower quadrant trocar port all under direct visualization. The appendix was visualized in the right mid abdomen. It was lateral to the cecum. The appendix appeared dilated and erythematous and it was thickened at the base but no evidence of perforation or necrosis of the appendix was seen. No periappendiceal abscess was seen. With a laparoscopic grasper I showed up the appendix to identify the base. A [place] dissector was then used to make a defect through the mesoappendix at the base. A 45 mm endoscopic echelon powered stapler was then used to divide the appendix at the base flush with the cecum. The mesoappendix was then divided with 2 vascular reload to the stapler. The appendix was then placed into an Endo-Catch bag and brought out through the periumbilical trocar port site. It was passed off table sent to pathology for examination. Both staple lines were then excess abdomen and they were intact without any bleeding. There was a small amount of blood clot in the right side abdomen which was aspirated. I then placed a 0 Vicryl suture in the periumbilical trocar fascial defect position utilizing a suture Passer laparoscopically under direct visualization. All the trocar ports were then removed under direct visualization and they were hemostatic. The abdomen was allowed to decompress. The periumbilical trocar port fascial defect was then closed by tying down the transfascial 0 Vicryl suture. Port site incisions were then irrigated sterile saline solution hemostasis was good. I then closed all the incisions utilizing a running subcuticular 4-0 Monocryl suture. The incisions were then cleaned the skin glue was applied. The patient tolerated the procedure well no complications. All sponges, needles, and instrument counts were correct at the end procedure. EBL was __10_cc. The patient was awakened and taken to recovery in stable and satisfactory condition. Implants None Estimated Blood Loss 10 Drains No Packing No Pathology Yes (Appendix to pathology) Complications No immediate complications Condition Stable Disposition PACU [facility] Billing Surgery - Charge Forward: Surgery Billing
[2025-10-10 09:00] VITALS: BP 144/72; O2SAT 99
[2025-10-10 09:30] VITALS: BP 117/59; PULSE 68
[2025-10-10] MEDS: OMEGA 3 POLYUNSAT FATTY ACIDS 1 GM CAP PO (10:57)
[2025-10-10] MEDS: ASPIRIN 81 MG ENTERIC TABLET PO (10:57)
[2025-10-10] MEDS: SIMVASTATIN 20 MG TABLET 40 MG PO (10:57)
[2025-10-10] MEDS: SERTRALINE HCL 25 MG TABLET 75 MG PO (10:58)
[2025-10-10] MEDS: PANTOPRAZOLE 40 MG TABLET PO (10:58)
[2025-10-10] MEDS: ACETAMINOPHEN 325 MG TABLET 650 MG PO (10:58)
[2025-10-10] MEDS: LEVOTHYROXINE SODIUM 150 MCG TABLET PO (10:58)
[2025-10-10] MEDS: MULTIVITAMINS THERAPEUTIC TAB (*BKC) 1 TABLET PO (10:58)
[2025-10-10 11:00] VITALS: BP 121/71; PULSE 66; RESP 20; TEMP 36.4; O2SAT 93
--- NOTE | 2025-10-10 12:43 | P.PNIM_ITS ---
Progress Note: A&P Assessment and Plan (1) Acute appendicitis: Code(s): K35.80 - Unspecified acute appendicitis Status: Acute Assessment and Plan: -Preliminary CT abdomen and pelvis with contrast. Impression dilated appendix, 10 mm with periappendiceal stranding suggesting appendicitis. No bowel obstruction. Large stool burden. Diverticulosis. No hydronephrosis or renal calculus. Urinary bladder wall thickening, nonspecific. Correlate with urinalysis. -his white count is not elevated. -surgery has been consulted. -postop care per surgery. -postop pain management per surgery. -the patient was started on empiric antibiotics of Rocephin and Flagyl. -continue with IV fluids. -the patient is NPO at this time. -p.r.n. Annamarie. (2) History of CVA (cerebrovascular accident): Code(s): Z86.73 - Personal history of transient ischemic attack (TIA), and cerebral infarction without residual deficits Status: Acute Assessment and Plan: -his aspirin is currently on hold at this time. -the patient stated the only thing that this stroke is affected is is memory. (3) CRUZITO (generalized anxiety disorder): Code(s): F41.1 - Generalized anxiety disorder Status: Acute Assessment and Plan: -the patient is NPO at this time. -may resume sertraline and buspirone when taking p.o. fluids again. (4) Mixed hyperlipidemia: Code(s): E78.2 - Mixed hyperlipidemia Status: Acute Assessment and Plan: The patient is on [place] 3 and simvastatin at home. He is currently NPO (5) Hypothyroidism: Code(s): E03.9 - Hypothyroidism, unspecified Status: Acute Assessment and Plan: -resume levothyroxine once he is no longer NPO Subjective Date/time seen: 10/10/25 12:43 Interval history: 75yo male who has a past history of a CVA that affected his memory here with complaints of right lower quadrant pain. Patient unavailable Objective Data Vital Signs Vital Signs: Vital Signs - 24 hr 10/09/25 22:52 10/09/25 23:05 10/09/25 23:06 Temperature 98 F Pulse Rate 86 79 Respiratory Rate 16 19 Blood Pressure 149/86 H 136/96 H Pulse Oximetry 100 100 99 Oxygen Delivery Room Air Oxygen Flow Rate 10/10/25 03:56 10/10/25 08:45 10/10/25 09:00 Temperature 98.4 F 97.2 F L Pulse Rate 70 74 Respiratory Rate 16 Blood Pressure 118/70 162/84 H 144/72 H Pulse Oximetry 95 99 99 Oxygen Delivery Simple Face Mask Simple Face Mask Oxygen Flow Rate 8 8 10/10/25 09:30 10/10/25 11:00 Temperature 97.5 F L Pulse Rate 68 66 Respiratory Rate 20 Blood Pressure 117/59 L 121/71 Pulse Oximetry 93 Oxygen Delivery Room Air Oxygen Flow Rate Intake/Output Intake/Output: Intake & Output 10/07/25 10/08/25 10/09/25 10/10/25 23:59 23:59 23:59 23:59 Intake Total 1400 Balance 1400 Meds/Results Medications: Active Medications Generic Name Dose Route Start Last Admin Trade Name Freq PRN Reason Stop Dose Admin Acetaminophen 650 mg 10/10/25 02:10 10/10/25 10:58 Acetaminophen 325 Mg Tablet PO 650 mg Q4H PRN Administration Mild Pain (1-3) or Fever Aspirin 81 mg 10/10/25 09:40 10/10/25 10:57 Aspirin 81 Mg Enteric Tablet PO 81 mg DAILY [facility] Administration Buspirone HCl 5 mg 10/10/25 09:40 10/10/25 10:58 Buspirone Hcl 5 Mg Tablet PO 5 mg BID TIMUR Administration Divalproex Sodium 750 mg 10/10/25 21:00 Divalproex Sodium Er 250 Mg Tab.24h BY MOUTH [facility] Fish Oil 1 gm 10/10/25 09:40 10/10/25 10:57 [place] 3 Polyunsat Fatty Acids 1 Gm Cap PO 1 gm DAILY [facility] Administration Hydromorphone HCl 0.5 mg 10/10/25 02:10 10/10/25 04:11 Hydromorphone Hcl Inj (*Crx) 1 Mg/Ml Syr IV PUSH 0.5 mg Q4H PRN Administration Pain Rated 7-10 Lactated Ringer's 500 mls @ 100 mls/hr 10/10/25 05:25 10/10/25 06:05 Lactated Ringers IV CONT 100 mls/hr .Q5H TIMUR Administration Levothyroxine Sodium 150 mcg 10/10/25 09:40 10/10/25 10:58 Levothyroxine Sodium 150 Mcg Tablet PO 150 mcg DAILY@0630 TIMUR Administration Multivitamins Therapeutic 1 tablet 10/10/25 09:40 10/10/25 10:58 Multivitamins Therapeutic Tab (*Bkc) PO 1 tablet DAILY TIMUR Administration Non-Formulary Medication 0 each 10/10/25 09:59 Nonformulary Nutritional Supplement XX 10/11/25 09:58 PRN PRN PROTOCOL Ondansetron HCl 4 mg 10/10/25 02:10 Ondansetron Inj 4 Mg/2 Ml Vial IV PUSH Q4H PRN Nausea Pantoprazole Sodium 40 mg 10/10/25 09:40 10/10/25 10:58 Pantoprazole 40 Mg Tablet PO 11/09/25 09:39 40 mg DAILY TIMUR Administration Sertraline HCl 75 mg 10/10/25 09:40 10/10/25 10:58 Sertraline Hcl 25 Mg Tablet PO 75 mg DAILY TIMUR Administration Simvastatin 40 mg 10/10/25 09:40 10/10/25 10:57 Simvastatin 20 Mg Tablet PO 40 mg DAILY TIMUR Administration Radiology Results: ITS Impressions Abdomen/Pelvis CT 10/10/25 06:59 IMPRESSION: 1. Acute appendicitis. Labs Labs: Laboratory Results - last 24 hr 10/09/25 10/10/25 23:31 05:59 WBC 9.0 9.6 RBC 4.72 4.38 L Hgb 14.1 13.1 L Hct 42.2 40.0 L MCV 89.4 91.3 MCH 29.9 29.9 MCHC 33.4 32.8 RDW 13.6 13.8 Plt Count 136 L 118 L MPV 9.8 9.5 Immature Gran % (Auto) 0.3 0.4 Neut % (Auto) 69.0 61.6 Lymph % (Auto) 17.1 L 21.8 [place] % (Auto) 9.9 H 12.7 H Eos % (Auto) 3.3 3.1 Baso % (Auto) 0.4 0.4 Lymph # (Auto) 1.54 2.09 [place] # (Auto) 0.9 H 1.2 H Eos # (Auto) 0.3 0.3 Baso # (Auto) 0.0 0.0 Abs Immat Gran (auto) 0.03 0.04 H Absolute Neuts (auto) 6.2 5.9 Absolute Nucleated RBC 0.000 0.000 Nucleated RBC % 0.0 0.0 Sodium 137 137 Potassium 4.0 3.9 Chloride 104 104 Carbon Dioxide 27 29 Anion Gap 6 4 BUN 28 H D 23 H Creatinine 0.89 0.91 Estim Creat Clear Calc 60 59 Estimated GFR > 60 > 60 Glucose 142 H 103 Calcium 9.1 8.7 Total Bilirubin 0.5 AST 29 ALT 20 Alkaline Phosphatase 68 Total Protein 7.0 Albumin 4.0 Lipase 93 Urine Color Yellow Urine Appearance Clear Urine pH 6.0 Ur Specific [place] 1.044 H Urine Protein Negative Urine Glucose (UA) Negative Urine Ketones Negative Ur Blood (Man) Negative Urine Nitrate Negative Urine Bilirubin Negative Urine Urobilinogen 0.2 Leukocyte Esterase Rfl Negative Blood Type O Positive Antibody Screen Negative
--- NOTE | 2025-10-10 15:33 | P.DS_ITS ---
DS: Admitting Diagnosis Discharge Date 10/10/25 Admitting Diagnosis Abdominal pain DS: Discharge Diagnosis Discharge Diagnosis (1) Acute appendicitis: Code(s): K35.80 - Unspecified acute appendicitis Status: Acute (2) History of CVA (cerebrovascular accident): Code(s): Z86.73 - Personal history of transient ischemic attack (TIA), and cerebral infarction without residual deficits Status: Acute (3) CRUZITO (generalized anxiety disorder): Code(s): F41.1 - Generalized anxiety disorder Status: Acute (4) Mixed hyperlipidemia: Code(s): E78.2 - Mixed hyperlipidemia Status: Acute (5) Hypothyroidism: Code(s): E03.9 - Hypothyroidism, unspecified Status: Acute DS: Summary Hospital Course Reason for hospitalization: 75yo male who has a past history of a CVA that affected his memory here with complaints of right lower quadrant pain. Please see H&P for detail. Hospital Course: Patient presents with abdominal pain. Preliminary CT abdomen and pelvis with contrast showing a dilated appendix, 10 mm with periappendiceal stranding suggesting appendicitis. No bowel obstruction. Large stool burden. Diverticulosis. No hydronephrosis or renal calculus. Urinary bladder wall thickening, nonspecific. WBC was normal. Plt count was low at 136K which has been noted before. UA was clear. General surgery was consulted. Patient has a hx of CVA and stated the only thing that the stroke is affected is his memory. Aspirin was held. Patient was started on Rocephin and Flagyl. He was brought to the OR and underwent a laparoscopic appendectomy. No perforation or abscess seen. Patient tolerated the procedure well. He was eating normally in the post- operative period. His pain was well controlled. He overall did well and was able to be discharged home on 10/10/25. Discharge instructions discussed including activity instructions. All questions answered. Status at Discharge Cognitive/behavioral status at discharge: stable Time Spent with Patient Time attestation: Total time spent providing and/or coordinating discharge services: Time spent: Greater than 30 minutes Exam Narrative: AF 97.5 121/71 66 20 93% ra Gen - NARD Chest - CTA bilaterally, nml RR CV - RRR S1/S2 Abd - Soft, NND, +BS, multiple incisions well approximated, clean, dry and intact Ext - No pedal edema Psych - Nml mood and affect Skin - Warm and dry DS: Data Data Completed and Pending Pending studies at discharge: Pending at discharge 10/10/25 08:29 Surgical [PTH] Routine Labs on day of discharge: Labs from last 24 hours 10/10/25 10/09/25 05:59 23:31 WBC 9.6 9.0 RBC 4.38 L 4.72 Hgb 13.1 L 14.1 Hct 40.0 L 42.2 MCV 91.3 89.4 MCH 29.9 29.9 MCHC 32.8 33.4 RDW 13.8 13.6 Plt Count 118 L 136 L MPV 9.5 9.8 Immature Gran % (Auto) 0.4 0.3 Neut % (Auto) 61.6 69.0 Lymph % (Auto) 21.8 17.1 L [place] % (Auto) 12.7 H 9.9 H Eos % (Auto) 3.1 3.3 Baso % (Auto) 0.4 0.4 Lymph # (Auto) 2.09 1.54 [place] # (Auto) 1.2 H 0.9 H Eos # (Auto) 0.3 0.3 Baso # (Auto) 0.0 0.0 Abs Immat Gran (auto) 0.04 H 0.03 Absolute Neuts (auto) 5.9 6.2 Absolute Nucleated RBC 0.000 0.000 Nucleated RBC % 0.0 0.0 Sodium 137 137 Potassium 3.9 4.0 Chloride 104 104 Carbon Dioxide 29 27 Anion Gap 4 6 BUN 23 H 28 H D Creatinine 0.91 0.89 Estim Creat Clear Calc 59 60 Estimated GFR > 60 > 60 Glucose 103 142 H Calcium 8.7 9.1 Total Bilirubin 0.5 AST 29 ALT 20 Alkaline Phosphatase 68 Total Protein 7.0 Albumin 4.0 Lipase 93 Urine Color Yellow Urine Appearance Clear Urine pH 6.0 Ur Specific [place] 1.044 H Urine Protein Negative Urine Glucose (UA) Negative Urine Ketones Negative Ur Blood (Man) Negative Urine Nitrate Negative Urine Bilirubin Negative Urine Urobilinogen 0.2 Leukocyte Esterase Rfl Negative Blood Type O Positive Antibody Screen Negative Discharge Plan Discharge Attending physician on discharge: Brett Jiang Consulting providers: Mike Pan Discharging Clinician: Brett Jiang Anticipated Discharge Date/Time: 10/10/25 15:42 Patient Disposition: Home Activity: other - see discharge instructions Diet: other - see discharge instructions Wound Care Instructions: other - see discharge instructions Discharge Instructions: May discharge home when stable. Follow up with Dr. Pan in the office in 2 weeks. Patient to call [phone] for an appointment. May shower in 24hours but do not soak incisions under water for 2 weeks. No lifting more than 10 to 15 lb for 2 weeks. May advance diet as tolerated. No driving for at least 3 days or until no longer taking any narcotic pain medication. Resume all home medications. Prescription for narcotic pain medicines will be sent to the patient's pharmacy if needed. May use Tylenol and/or ibuprofen in addition to or in place of narcotic pain medications for postoperative pain. Follow-up with your primary care provider in 1-2 weeks. Please call for appointment. Thank you for using [facility] for your health care needs. Patient Instructions: Antibiotic Form Patient Language: [place] Stand Alone Forms: General Discharge Information Follow-up/Referrals: Ezio Neil MD [Primary Care Provider, Family Practice] - Call for Appointment Mike Pan MD [Physician, General Surgery] Discharge Medications: New hydrocodone-acetaminophen 5-325 mg tablet 1 tablet PO Q4H PRN (Reason: pain) Qty: 12 0RF Continued aspirin [Adult Aspirin Regimen] 81 mg tablet,delayed release (DR/EC) 81 mg PO DAILY omeprazole 20 mg Tablet,Delayed Release (Dr/Ec) 20 mg PO DAILY multivitamin Tablet 1 tablet PO DAILY omega 1-jri-xhs-fish oil [Fish Oil] 1,000 mg (120 mg-180 mg) Capsule 1 cap PO DAILY Glucosamine Chondroitin 550-30-1 mg Capsule 1 cap PO DAILY sertraline 50 mg tablet 75 mg PO DAILY Qty: 135 2RF buspirone 5 mg tablet 5 mg PO BID Qty: 180 2RF simvastatin 40 mg tablet 40 mg PO DAILY Qty: 90 2RF Rx Instructions: TAKE 1 TABLET BY MOUTH DAILY levothyroxine 150 mcg tablet 150 mcg PO DAILY Qty: 30 5RF divalproex 250 mg tablet extended release 24 hr See Rx Instructions .ROUTE .COMPLEX Qty: 270 1RF Dose Instruction: TAKE 3 TABLETS BY MOUTH AT BEDTIME Rx Instructions: TAKE 3 TABLETS BY MOUTH AT BEDTIME Date of admission: 10/10/25 02:11 Primary Care Provider: Ezio Neil Admitting Provider: Brett Jiang Attending physician on admission: Brett Jiang Condition: Stable Hospitalist MIPS Heart Failure (Exclusion) Patient has history of Heart Transplant or Left Ventricular Assistive Device?: No IF YES, STOP HERE Heart Failure (Qualifier) Patient has current or prior documentation of LVEF less than or equal to 40%, or mod/servere depressed LVSF?: No IF NO, STOP HERE
== END 2025-10-10 16:10 | disposition home or self-care (01) ==
LOC: ANHED 10-10 01:56 → ANH3MED 10-10 03:12
PROVIDERS: Nurse Practitioner; Surgery; Admitting Provider Internal Medicine; Emergency Provider Student in an Organized Health Care Education/Training Program; PCP Family Medicine; Visit Provider Internal Medicine
PROC: 0DTJ4ZZ Resection of Appendix, Percutaneous Endoscopic Approach (ICD-10-PCS; CPT 44970; principal; 2025-10-10 08:00)
DX: K35.80 Unspecified acute appendicitis (principal); K57.90 Diverticulosis of intestine, part unspecified, without perforation or abscess without bleeding; E78.5 Hyperlipidemia, unspecified; Z86.73 Personal history of transient ischemic attack (TIA), and cerebral infarction without residual deficits; F41.1 Generalized anxiety disorder; K21.9 Gastro-esophageal reflux disease without esophagitis; E03.9 Hypothyroidism, unspecified; Z79.82 Long term (current) use of aspirin; G40.909 Epilepsy, unspecified, not intractable, without status epilepticus
CPT/HCPCS: 44970; 36415; 74177; 80048; 80053; 81003; 83690; 85025; 86850; 86900; 86901; 88304; 93005; 96361; 96365; 96375; 99285; A9270; G0378; J0696; J1100; J1171; J1836; J1885; J2003; J2004; J2371; J2405; J2704; J3010; J7120; Q9967